=== PATIENT | female | born 1945 | race Caucasian/White ===

== ENCOUNTER 2018-05-28 14:22 | Inpatient (IN) | payer OTHER, MEDICARE ==
[2018-05-28] MEDS ORDERED: SODIUM CHLORIDE IV ONE (15:56)
[2018-05-28] MEDS ORDERED: VANCOMYCIN 1,000 MG in DEXTROSE 5%-WATER - 250 ML IVPB ONE (15:56)
[2018-05-28] MEDS ORDERED: ACETAMINOPHEN 1000 MG/100 ML VIAL (NON FORMULARY) IVPB ONE (15:56)
--- NOTE | 2018-05-28 16:10 | PDOC ---
History of Present Illness - General Chief Complaint: SIRS, Suspected/Possible Stated Complaint: FEVER Time Seen by Provider: 05/28/18 15:58 History Source: Patient - History of Present Illness Initial Comments: 05/28/18 16:44 The patient is a 72 year old female with a PMH of HTN, Depression, Sepsis (w/ recent admission @ [facility]), Rheumatoid Arthritis who presents with family for a chief complaint of pain. Daughter @ bedside assists with history. 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 Today, patient did not wake up at her normal hour and when a friend came to check on her aruond 10 a.m. she noted that patient had urinated in the bed. Patient is now c/o pain all over, worse in her arms. 10 ROS is negative including no chest pain/shortness of breath/nausea/vomiting/ diarrhea/constipation/dsyuria/hematuria. NKDA As per EMR, patient last evaluated in our ED in [address] showed non-obstructing nephrolithiasis. Past History - Past Medical History Allergies/Adverse Reactions: Allergies Allergy/AdvReac Type Severity Reaction Status Date / Time No Known Allergies Allergy Verified 01/11/12 15:48 Home Medications: Ambulatory Orders Amphet Asp/Amphet/D-Amphet [Adderall 20 mg Tablet] 20 mg PO DAILY 01/11/12 Amphet Asp/Amphet/D-Amphet [Adderall 20 mg Tablet] 60 mg PO HS 01/11/12 Biotin 1 tab PO DAILY 01/11/12 Cholecalciferol (Vitamin D3) [Vitamin D3] 400 unit PO DAILY 01/11/12 Clonazepam 1 mg PO BID 01/11/12 Phenelzine Sulfate [Nardil] 15 mg PO BID 01/11/12 Amlodipine Besylate [Norvasc -] 2.5 mg PO DAILY 05/28/18 Aripiprazole 10 mg PO DAILY 05/28/18 Atenolol [Tenormin -] 50 mg PO DAILY 05/28/18 Ferrous Sulfate [Iron] 0 mg PO DAILY 05/28/18 Leflunomide [Arava] 20 mg PO DAILY 05/28/18 predniSONE [Deltasone -] 5 mg PO DAILY 05/28/18 Anemia: Yes (IRON DEFICIENCY) Asthma: Yes COPD: No HTN: Yes Psychiatric Problems: Yes (Depression) - Immunization History Td Vaccination: No - Suicide/Smoking/Psychosocial Hx Smoking Status: Yes Smoking History: Unknown if ever smoked Have you smoked in the past 12 months: No Number of Cigarettes Smoked Daily: 0 Hx Alcohol Use: No Drug/Substance Use Hx: No Review of Systems - Review of Systems Constitutional: No: Chills, Fever HEENTM: No: Recent change in vision Respiratory: No: Cough, Shortness of Breath Cardiac (ROS): No: Chest Pain, Lightheadedness, Palpitations, Syncope ABD/GI: No: Constipated, Diarrhea, Nausea, Vomiting : No: Burning, Dysuria *Physical Exam - Vital Signs Last Vital Signs Temp Pulse Resp BP Pulse Ox 102 F H 109 H 20 108/65 95 05/28/18 15:00 05/28/18 15:00 05/28/18 15:00 05/28/18 15:00 05/28/18 15:00 - Physical Exam Comments: 05/28/18 22:39 General: Comfortable, no acute distress HEENT: PERRL, EOMI, MMM, voice normal, normal neck ROM Cards: RRR, systolic murmur best asculatated in the R 2nd intercostal space Pulm: Comfortable on room air, clear to auscultation bilaterally Abd: Soft, nontender, nondistended : No CVA tenderness Rectal: Normal tone, no blood noted, no perianal lesions. Watery brown stool on digital exam. Ext: Atraumatic. No LE edema. ROM intact. Strength 5/5 and equal bilaterally Vasc: Extremities WWP. Skin: Normal color, no rashes or lesions, mild hyperethesia in B/L UE Neuro: A&Ox3, CN grossly intact, normal speech, motor/sensory grossly intact and symmetric Psych: Mood appropriate to situation Moderate Sedation - Procedure Monitoring Vital Signs: Procedure Monitoring Vital Signs Temperature 102 F H 05/28/18 15:00 Pulse Rate 109 H 05/28/18 15:00 Respiratory Rate 20 05/28/18 15:00 Blood Pressure 108/65 05/28/18 15:00 O2 Sat by Pulse Oximetry (%) 95 05/28/18 15:00 Heart Score/ECG Review - ECG Impressions Comment:: 05/28/18 21:06 HR 99, NSR, normal intervals, no deviations, no RUSS/STD/TWI - non ischemic EKG ED Treatment Course - LABORATORY CBC & Chemistry Diagram: 05/28/18 17:20 05/28/18 17:20 Medical Decision Making - Medical Decision Making 72 year old female with chief c/o pain. H/o recent hospitalization @ [facility] for sepsis possible etiology PNA vs. UTI. Febrile (102) and Tachycardic (HR 109) @ presentation. ED Adult Sepsis protocol initiated + Empiric Abx coverage 05/28/18 17:15 Repeat VS: HR 101, BP 111/62, SpO2 99% on 2L NC My read of CXR shows no infiltrate/consolidation Leukocytosis (22.4) Microcytic Anemia (Hb 7.9) UA clean Influenza negative Troponin 0.10 - w/o EKG changes or complaints of chest pain, possibly 2/2 to ischemic demand Patient requires inpatient admission for IV antibiotics as well as further evaluation of sepsis etiology. 05/28/18 20:35 Case d/w Dr. Pola Capellan Patient admitted to inpatient medicine service for further evaluation Patient reassessed @ bedside VSS Requesting PO intake Counseled on plan of care, amenable to admission. Clinical Impression: Sepsis *DC/Admit/Observation/Transfer Diagnosis at time of Disposition: Fever - Referrals - Patient Instructions - Post Discharge Activity
[2018-05-28] MEDS ORDERED: ACETAMINOPHEN INJECTION 100 ML IVPB ONE (16:40)
[2018-05-28] MEDS ORDERED: VANCOMYCIN 1 GRAM (PRE-DOCKED) 1,000 MG/250 ML BAG IVPB ONE (16:40)
--- NOTE | 2018-05-28 17:15 | PDOC ---
Attending Attestation - HPI HPI: 05/28/18 18:15 The patient is a 72 year old female with past medical history of HTN, depression , Sepsis (with recent admission at [facility]) and RA (on Prednisone) presents to the emergency department with generalized pain. The patient reports she has pain to her arms and pain all over and its been waxing and waning for a week. Per daughter, she was found by a friend around 10:00 am, who noted that she urinated on the bed. Denies rhinorrhea, cough, abdominal pain. - Physicial Exam PE: 05/28/18 18:15 Vitals: Triage Vital signs reviewed General Appearance: no acute distress, well nourished well developed, Neck: Supple;No Nuchal rigidity Chest Wall: Nontender Cardiac: +Systolic ejection murmur. Regular rate and rhythm. no rubs, no gallops , Lungs: Clear to auscultation bilateral, good air movement bilaterally, Abdomen: Soft, nondistended, normal bowel sounds, nontender to palpation Extremities: Full range of motion to all extremities, no cyanosis, clubbing, or edema Skin: Warm and dry, no rashes or lesions, no petechiae - Medical Decision Making 05/28/18 18:16 Documentation prepared by Lexie Middleton, acting as medical biller coder for Miky Schwartz MD. 05/28/18 18:16 EKG: EKG read by Dr. Schwartz 17:21. Vent. Rate 99 bpm OH interval 120 ms QRS duration 72 ms QT/QTc 388/497 ms Normal sinus rhythm <Lexie Middleton - Last Filed: 05/28/18 18:15> - Resident Resident Name: Adrianne Gallegos - ED Attending Attestation I have performed the following: I have examined & evaluated the patient, The case was reviewed & discussed with the resident, I agree w/resident's findings & plan, Exceptions are as noted - Medical Decision Making 72 years old with criteria for sepsis Fever chills body aches No obvious etiology at this time chest x-ray unremarkable marked leukocytosis noted on CBC Given fever and leukocytosis and recent hospitalization patient covered with broad-spectrum antibiotics for possible sepsis/hospital-acquired pneumonia We'll admit to medicine for further management. <Miky Schwartz - Last Filed: 05/30/18 15:15>
[2018-05-28 17:30] LABS: VENOUS PC02 35.3 mmHg (41-51); VENOUS PH 7.43 (7.31-7.41); VENOUS PO2 63.7 mmHg (30-40)
[2018-05-28 17:33] LABS: BASO % 0.4 % (0-2.0); EOS % 0.2 % (0-4.5); HEMATOCRIT 24.6 % (32.4-45.2); HEMOGLOBIN 7.9 GM/dL (10.7-15.3); LYMPH % 3.4 % (8-40); MCH 24.8 pg (25.7-33.7); MCHC 32.1 g/dl (32.0-36.0); MEAN CELL VOLUME 77.2 fl (80-96); MEAN PLT VOLUME 7.7 fl (7.5-11.1); MONO % 5.8 % (3.8-10.2); NEUT % 90.2 % (42.8-82.8); PLATELET COUNT 231 K/MM3 (134-434); RBC 3.19 M/mm3 (3.60-5.2); RDW 19.8 % (11.6-15.6); WHITE BLOOD COUNT 22.4 K/mm3 (4.0-10.0)
[2018-05-28 17:52] LABS: INR 1.28 (0.83-1.09); PROTHROMBIN TIME (PATIENT) 15.1 SEC (9.7-13.0)
[2018-05-28 17:55] LABS: ACTIVATED PTT 25.3 SECONDS (25.2-36.5)
[2018-05-28 17:57] LABS: ALBUMIN 2.2 g/dl (3.4-5.0); ALK PHOS 88 U/L (45-117); ANION GAP 7 MMOL/L (8-16); BILIRUBIN,TOTAL 0.6 mg/dL (0.2-1); BLOOD UREA NITROGEN 22 mg/dL (7-18); CALCIUM 7.5 mg/dL (8.5-10.1); CHLORIDE 106 mmol/L (98-107); CO2 24 mmol/L (21-32); CREATININE 0.8 mg/dL (0.55-1.3); GLUCOSE,RANDOM 85 mg/dL (74-106); POTASSIUM 4.1 mmol/L (3.5-5.1); SGOT/AST 16 U/L (15-37); SGPT/ALT 20 U/L (13-61); SODIUM 136 mmol/L (136-145); TOT PROT 4.5 g/dl (6.4-8.2)
[2018-05-28 18:33] LABS: URINE APPEARANCE CLEAR; URINE BILIRUBIN NEGATIVE (<2.0 mg/dL); URINE COLOR YELLOW; URINE GLUCOSE (UA) NEGATIVE (NEGATIVE); URINE KETONE NEGATIVE (NEGATIVE); URINE LEUK ESTERASE NEGATIVE (NEGATIVE); URINE NITRITE NEGATIVE (NEGATIVE); URINE PROTEIN 1+ (NEGATIVE); URINE UROBILINOGEN NEGATIVE mg/dL (0.2-1.0)
[2018-05-28 18:42] LABS: URINE HYALINE CAST 1 /lpf; URINE MUCUS RARE
[2018-05-28 19:26] LABS: ANISOCYTOSIS 1+; OVALOCYTE 1+; PLATELET ESTIMATE ADEQUATE
--- NOTE | 2018-05-28 20:40 | HP ---
CHIEF COMPLAINT: generalized weakness PCP: dr. julian hayden HISTORY OF PRESENT ILLNESS: The patient is a 72 year old female with a PMH of HTN, Depression, OA, RA, Lupus , CHF, asthma , Sepsis (w/recent admission @ [facility] [place]), RA who presents with family for a chief complaint of pain and genralised weakness . Daughter @ bedside assists with history. 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 Today, patient did not wake up at her normal hour and when a friend came to check on her aruond 10 a.m. she noted that patient had urinated in the bed. Patient is now c/o pain all over, worse in her arms. daughter denies any chest pain or sob , palpitation , headache or blurry vision , but reports low grade fever , some confusion in AM and slow in her response, lethargic and general fatigue has a history of RA, OA that worsen todaya nd over last week. she was in rehab for 6 months was dc from rehab last july had left knee surgery last September per daughter daughter Pati phone number [phone] ER course was notable for: (1) UA , cbc, cmp (2)Ceftriaxone (3)IV fluids Recent Travel:denies PAST MEDICAL HISTORY: Asthma, HTN , CHF , RA, OA , lupus PAST SURGICAL HISTORY: Social History: Smoking:previous smoker quit 30 years ago, Alcohol:socially Drugs: denies Family History: father with pancreatic cancer Allergies No Known Allergies Allergy (Verified 01/11/12 15:48) HOME MEDICATIONS: Home Medications Medication Instructions Recorded Amphet Asp/Amphet/D-Amphet 20 mg PO DAILY 01/11/12 [Adderall 20 mg Tablet] Amphet Asp/Amphet/D-Amphet 60 mg PO HS 01/11/12 [Adderall 20 mg Tablet] Biotin 1 tab PO DAILY 01/11/12 Cholecalciferol (Vitamin D3) 400 unit PO DAILY 01/11/12 [Vitamin D3] Clonazepam 1 mg PO BID 01/11/12 Phenelzine Sulfate [Nardil] 15 mg PO BID 01/11/12 Amlodipine Besylate [Norvasc -] 2.5 mg PO DAILY 05/28/18 Aripiprazole 10 mg PO DAILY 05/28/18 Atenolol [Tenormin -] 50 mg PO DAILY 05/28/18 Ferrous Sulfate [Iron] 0 mg PO DAILY 05/28/18 Leflunomide [Arava] 20 mg PO DAILY 05/28/18 predniSONE [Deltasone -] 5 mg PO DAILY 05/28/18 REVIEW OF SYSTEMS CONSTITUTIONAL: Absent: fever, chills, diaphoresis, generalized weakness, malaise, loss of appetite, weight change HEENT: Absent: rhinorrhea, nasal congestion, throat pain, throat swelling, difficulty swallowing, mouth swelling, ear pain, eye pain, visual changes CARDIOVASCULAR: Absent: chest pain, syncope, palpitations, irregular heart rate, lightheadedness , peripheral edema RESPIRATORY: Absent: cough, shortness of breath, dyspnea with exertion, orthopnea, wheezing, stridor, hemoptysis GASTROINTESTINAL: Absent: abdominal pain, abdominal distension, nausea, vomiting, diarrhea, constipation, melena, hematochezia GENITOURINARY: Absent: dysuria, frequency, urgency, hesitancy, hematuria, flank pain, genital pain MUSCULOSKELETAL: Absent: myalgia, arthralgia, joint swelling, back pain, neck pain SKIN: Absent: rash, itching, pallor HEMATOLOGIC/IMMUNOLOGIC: Absent: easy bleeding, easy bruising, lymphadenopathy, frequent infections ENDOCRINE: Absent: unexplained weight gain, unexplained weight loss, heat intolerance, cold intolerance NEUROLOGIC: Absent: headache, focal weakness or paresthesias, dizziness, unsteady gait, seizure, mental status changes, bladder or bowel incontinence PSYCHIATRIC: Absent: anxiety, depression, suicidal or homicidal ideation, hallucinations. PHYSICAL EXAMINATION Vital Signs - 24 hr 05/28/18 05/28/18 05/28/18 15:00 16:30 17:31 Temperature 102 F H Pulse Rate 109 H Pulse Rate [ 100 H 100 H Apical] Respiratory 20 24 H 24 H Rate Blood Pressure 108/65 Blood Pressure 115/64 103/58 L [Right Arm] O2 Sat by Pulse 98 98 93 L Oximetry (%) 05/28/18 05/28/18 05/28/18 18:30 19:16 19:25 Temperature 98.5 F Pulse Rate Pulse Rate [ 95 H 92 H Apical] Respiratory 24 H 24 H Rate Blood Pressure Blood Pressure 109/60 111/60 [Right Arm] O2 Sat by Pulse 93 L 98 98 Oximetry (%) 05/28/18 19:30 Temperature Pulse Rate Pulse Rate [ 92 H Apical] Respiratory 22 H Rate Blood Pressure Blood Pressure 107/61 [Right Arm] O2 Sat by Pulse 98 Oximetry (%) GENERAL: Awake, alert,oriented to person , lethargic sleepy ,butterfly rash HEAD: Normal with no signs of trauma. EYES: Pupils equal, round and reactive to light, extraocular movements intact, EARS, NOSE, THROAT: Ears normal, nares patent, oropharynx clear without exudates. Moist mucous membranes. NECK: Normal range of motion, supple LUNGS: CTA B.l HEART: Regular rate and rhythm, normal S1 and S2, soft systolic murmur 2/6 RUSB Abdomen : Soft, ND. NT , normal BS , no suprapubic tenderness UPPER EXTREMITIES: 2+ pulses, warm, well-perfused. No cyanosis. limited rom due to pain , B/L shoulder swelling , right hand finger joint swelling LOWER EXTREMITIES: 2+ pulses, warm, well-perfused. No calf tenderness. strength 5/5 lower ext extension and flexion NEUROLOGICAL: Cranial nerves II-XII intact. Normal speech. PSYCHIATRIC: Cooperative. lethargic SKIN: Warm, dry, normal turgor, butterfly rash Laboratory Results - last 24 hr 05/28/18 05/28/18 05/28/18 17:20 17:20 17:20 WBC 22.4 H RBC 3.19 L Hgb 7.9 L Hct 24.6 L MCV 77.2 L MCH 24.8 L MCHC 32.1 RDW 19.8 H Plt Count 231 MPV 7.7 Absolute Neuts (auto) 20.2 H Total Counted 100 Neutrophils % 90.2 H Neutrophils % (Manual) 83.0 H Band Neutrophils % 4.0 Lymphocytes % 3.4 L Lymphocytes % (Manual) 5.0 L Monocytes % 5.8 Monocytes % (Manual) 7 Eosinophils % 0.2 Eosinophils % (Manual) 1.0 Basophils % 0.4 Nucleated RBC % 0 Differential Comment Man diff performed Platelet Estimate Adequate Platelet Comment Poikilocytosis 1+ Anisocytosis 1+ Ovalocytes 1+ PT with INR 15.10 H INR 1.28 H PTT (Actin FS) 25.3 VBG pH 7.43 H POC VBG pCO2 35.3 L POC VBG pO2 63.7 H VBG HCO3 22.8 L VBG O2 Sat (Thomas) 90.6 H VBG Base Excess -0.8 Sodium Potassium Chloride Carbon Dioxide Anion Gap BUN Creatinine Creat Clearance w eGFR Random Glucose Lactic Acid Calcium Total Bilirubin AST ALT Alkaline Phosphatase Troponin I Total Protein Albumin Urine Color Urine Appearance Urine pH Ur Specific [place] Urine Protein Urine Glucose (UA) Urine Ketones Urine Blood Urine Nitrite Urine Bilirubin Urine Urobilinogen Ur Leukocyte Esterase Urine WBC (Auto) Urine RBC (Auto) Hyaline Casts Urine Mucus Influenza A (Rapid) Influenza B (Rapid) 05/28/18 05/28/18 05/28/18 17:20 17:20 17:20 WBC RBC Hgb Hct MCV MCH MCHC RDW Plt Count MPV Absolute Neuts (auto) Total Counted Neutrophils % Neutrophils % (Manual) Band Neutrophils % Lymphocytes % Lymphocytes % (Manual) Monocytes % Monocytes % (Manual) Eosinophils % Eosinophils % (Manual) Basophils % Nucleated RBC % Differential Comment Platelet Estimate Platelet Comment Poikilocytosis Anisocytosis Ovalocytes PT with INR INR PTT (Actin FS) VBG pH POC VBG pCO2 POC VBG pO2 VBG HCO3 VBG O2 Sat (Thomas) VBG Base Excess Sodium 136 Potassium 4.1 Chloride 106 Carbon Dioxide 24 Anion Gap 7 L BUN 22 H Creatinine 0.8 Creat Clearance w eGFR > 60 Random Glucose 85 Lactic Acid 1.1 Calcium 7.5 L Total Bilirubin 0.6 AST 16 ALT 20 Alkaline Phosphatase 88 Troponin I 0.10 H Total Protein 4.5 L Albumin 2.2 L Urine Color Urine Appearance Urine pH Ur Specific [place] Urine Protein Urine Glucose (UA) Urine Ketones Urine Blood Urine Nitrite Urine Bilirubin Urine Urobilinogen Ur Leukocyte Esterase Urine WBC (Auto) Urine RBC (Auto) Hyaline Casts Urine Mucus Influenza A (Rapid) Negative Influenza B (Rapid) Negative 05/28/18 05/28/18 05/28/18 17:23 18:00 18:53 WBC RBC Hgb Hct MCV MCH MCHC RDW Plt Count MPV Absolute Neuts (auto) Total Counted Neutrophils % Neutrophils % (Manual) Band Neutrophils % Lymphocytes % Lymphocytes % (Manual) Monocytes % Monocytes % (Manual) Eosinophils % Eosinophils % (Manual) Basophils % Nucleated RBC % Differential Comment Platelet Estimate Platelet Comment Poikilocytosis Anisocytosis Ovalocytes PT with INR INR PTT (Actin FS) VBG pH POC VBG pCO2 POC VBG pO2 VBG HCO3 VBG O2 Sat (Thomas) VBG Base Excess Sodium Potassium Chloride Carbon Dioxide Anion Gap BUN Creatinine Creat Clearance w eGFR Random Glucose Lactic Acid 1.2 Calcium Total Bilirubin AST ALT Alkaline Phosphatase Troponin I Cancelled Total Protein Albumin Urine Color Yellow Urine Appearance Clear Urine pH 6.0 Ur Specific [place] 1.018 Urine Protein 1+ H Urine Glucose (UA) Negative Urine Ketones Negative Urine Blood Negative Urine Nitrite Negative Urine Bilirubin Negative Urine Urobilinogen Negative Ur Leukocyte Esterase Negative Urine WBC (Auto) 1 Urine RBC (Auto) None Hyaline Casts 1 Urine Mucus Rare Influenza A (Rapid) Influenza B (Rapid) CBC, BMP 05/28/18 17:20 05/28/18 17:20 ASSESSMENT/PLAN: The patient is a 72 year old female with a PMH of HTN, Depression, OA, RA, Lupus , CHF, asthma , Sepsis (w/recent admission @ [facility] [place]), RA who presents with family for a chief complaint of pain and generalized weakness .admitted to med- surg due to RA flare up sepsis 2/ HPNA * ct chest with upper and lower lobe infiltrate * wbc 22.4 , rectal temp 102 in ED * zosyn daily , doxycycline 100 BID * vanco given IN ED * gentle hydration IV fluids NS @ 42 cc/hr * daugherty cx * urine legionella AG * RA flare up * complain of B/l shoulder pain * on prednisone at home will cont with 40 daily and Vit D * Rheumatology consult for possible joint aspiration * CT chest shows B/L shoulder(glomerulohumeral ) effusion CHF * stable in NAD * resume home meds Elevated trop likley demand ischedmia , * Tren trop * EKG * ASA Asthma * stable Anemia * likely due to chronic disease * H/H 7.9/24.6 * irone studies chronic L4 compression fracture * asymptomatic * f.u out pt * PT thyroid nodule * [address] scan * repeat images as out pt L-ovary cyst * 3.7 cm , repeat images as out pt in 6 months Bilateral non obstructing renal stones with nonspecific aissatou-renal fluid. FEN * F: NS @ 42 cc/hr * E: monitor lytes * N: low sodium diet Proph * DVTS: SCDS * GI PPI Dispo * med surg code: full code daughter has health care proxy Pati Ventura [phone] Visit type - Emergency Visit Emergency Visit: Yes ED Registration Date: 05/28/18 Care time: The patient presented to the Emergency Department on the above date and was hospitalized for further evaluation of their emergent condition. - New Patient This patient is new to me today: Yes Date on this admission: 05/29/18 - Critical Care Critical Care patient: No
--- NOTE | 2018-05-28 20:56 | PN ---
Teaching Attending Note Name of Resident: Pola Echeverria ATTENDING PHYSICIAN STATEMENT I saw and evaluated the patient. I reviewed the resident's note and discussed the case with the resident. I agree with the resident's findings and plan as documented. SUBJECTIVE: Seen and examined; please refer to resident note for further historical information. Briefly, this is a 72 y/o female presenting to the hosptial today due to lethargy, confusion; she was found in her own urine on her bed. She was complaining of generalized pain throughout her body stereotyped of her RA with shoulder and hand pain and swelling. History of RA/Lupus on chronic steroids; not on DMARD. 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 2 weeks ago at [facility] 2 /2 UTI with sepsis. She feels weak and tired; not altered or confused when I saw her. She is requiring some O2 and is found on prelim CT to have a DELFINO pneumonia and b/l pleural effusions with ?LLL pna and likely elevated PAP. She recently had a flare of RA and was on a prednisone taper starting at 40 QD. Slightly tachycardic with normal BP and 98% on 2L O2 on admission. She denies any previously existing pulmonary or cardiac pathology. She was having no cardiac sx and her troponin trended down from .1 to .09. She has a largely elevated ESR and CRP. She will be placed on telemetry and monitored on the medicine service. 10 sys ROS done and negative aside from HPI PMH, PSH, Family Hx, Social Hx reviewed Medication list reviewed OBJECTIVE: VS, labs, imaging reviewed NAD, AAO, resting in bed. Somewhat uncomfortably due to joint pain NC AT EOMI PERRLA RRR s1/2 no mgr Lungs mostly clear but some L-sided rales, w/ sym exp No rashes or abbrasions but thin-appearing skin Hands with lissy's nodules, joint swelling warm to touch in the b/l hands. CN2-12 wnl, no fnd Normal mood, appropriate behavior CT shows DELFINO pneumonia and bilateral pleural effusions (may be covering up a LLL process?) with cardiomegaly and dilated pulmonary A. maybe representing elevated PAP. 2cm thyroid nodule, b/l glenohumeral joint effusions with multiple chronic thoracic compressions as well as chronic L4 compression fracture. She is seen to have b/l glenohumeral joint effusions. CT abdomen/pelvis shows 3.7 cm cyst on the L-ovary with recommendation for 6 month imaging followup. Bilateral nonobstructing renal stones with nonspecific perirenal fluid. ASSESSMENT AND PLAN: Patient presents with lethargy/confusion and was noted to require some O2; she is noted to have a DELFINO pneumonia with possible flare of her autoimmune disease. 1) DELFINO Pneumonia -Given recent admit to [facility] for HAP (but with acknowledement that she has been out in the community) she would be at risk for HAP with atypicals. PNA endorsed by the imaging, as well as the leukocytosis and SOB. Will cover empirically and culture blood and sputum; v/z/atypical coverage. She will be monitored on tele with incentive spirometry. She doesn't appear to be in decompensated CHF but will go ahead and check a BNP. 2) Autoimmune disease flare -Placing back on 40 Prednisone daily and monitor; consult Dr. Hatfield. Trying to obtain OP records. ESR and CRP grossly elevated. 3) Troponemia -No CV sx; RA could effect the heart, etc. May also be demand. Will go ahead and trend troponin down, check echocardiogram. She hasn't seen a CV here so we will consult electronic systems security assessment cardiology for expert opinion. 4) HTN -Reconcile and continue appropriate home meds 5) Joint Effusions -Likely due to RA; doubt infectious etiology given polyarticular involvement. 6) Pleural Effusions -Checking BNP and echo but suspect that this could be related to her underlying rheum disease 7) Hypoalbuminemia -Checking prealbumin and considering nutritional consult 8) Chronic Compression fractures -High risk with steroid use; needs to FU with PCP ensure she is up to date on DEXA, etc. Can offer OP referral to NSGY. 9) Nonobstructing renal calculi -Noted; monitor 10) Thyroid nodule -2cm nodule found incidentally on CT; check US and TFTs 11) R-adenexal cyst -Found incidentally, 3.7cm on prelim read. Followup 6 months with repeat imaging.
[2018-05-28] MEDS ORDERED: SODIUM CHLORIDE 250 ML IV STA (21:17)
[2018-05-28] MEDS ORDERED: SODIUM CHLORIDE 1,000 ML IV SCH (21:30)
[2018-05-28] MEDS ORDERED: DEXTROSE 50%-WATER 25 GM/50 ML DISP.SYRIN IVPUSH ONE (23:52)
[2018-05-28] MEDS ORDERED: DEXTROSE 50%-WATER 25 GM/50 ML DISP.SYRIN IVPUSH PRN (23:52)
[2018-05-29 04:03] VITALS: BMI 25.4
[2018-05-29] MEDS ORDERED: PIPERACILLIN/TAZOBACTAM 3.375 GM VIAL IVPB ONE ×3 (06:56→21:49)
[2018-05-29] MEDS ORDERED: DEXTROSE 5%-WATER - 50 ML IVPB ONE ×3 (06:56→21:50)
[2018-05-29] MEDS: PIPERACILLIN/TAZOB 3.375 GM 3.375 GM in DEXTROSE 5%-WATER - 50 ML IVPB SCH ×3 (07:03→22:01)
[2018-05-29 07:17] LABS: BASO % 0.4 % (0-2.0); EOS % 0.9 % (0-4.5); HEMATOCRIT 25.5 % (32.4-45.2); HEMOGLOBIN 8.1 GM/dL (10.7-15.3); LYMPH % 3.2 % (8-40); MCH 24.8 pg (25.7-33.7); MCHC 31.7 g/dl (32.0-36.0); MEAN CELL VOLUME 78.1 fl (80-96); MEAN PLT VOLUME 8.2 fl (7.5-11.1); MONO % 6.1 % (3.8-10.2); NEUT % 89.4 % (42.8-82.8); PLATELET COUNT 235 K/MM3 (134-434); RBC 3.26 M/mm3 (3.60-5.2); RDW 19.6 % (11.6-15.6); WHITE BLOOD COUNT 17.2 K/mm3 (4.0-10.0)
[2018-05-29] MEDS ORDERED: ASPIRIN 325 MG TABLET PO ONE (08:15)
[2018-05-29 08:58] LABS: ALBUMIN 2.1 g/dl (3.4-5.0); CO2 21 mmol/L (21-32); CREATININE 0.7 mg/dL (0.55-1.3)
[2018-05-29 09:10] LABS: ALK PHOS 100 U/L (45-117); ANION GAP 8 MMOL/L (8-16); BILIRUBIN,TOTAL 0.5 mg/dL (0.2-1); BLOOD UREA NITROGEN 17 mg/dL (7-18); CALCIUM 7.9 mg/dL (8.5-10.1); CHLORIDE 109 mmol/L (98-107); GLUCOSE,RANDOM 68 mg/dL (74-106); N-TERMINAL BNP 3785.8 pg/ml (5-125); SGOT/AST 18 U/L (15-37); SGPT/ALT 20 U/L (13-61); SODIUM 138 mmol/L (136-145); TOT PROT 4.6 g/dl (6.4-8.2)
[2018-05-29] MEDS ORDERED: SODIUM CHLORIDE 1,000 ML IV SCH (09:44)
[2018-05-29] MEDS ORDERED: DOXYCYCLINE INJECTION 100 MG in DEXTROSE 5%-WATER 100 ML IVPB SCH (10:00)
[2018-05-29] MEDS ORDERED: predniSONE 20 MG TABLET (UD) PO SCH ×3 (10:00→17:04)
[2018-05-29] MEDS ORDERED: predniSONE 5 MG TABLET (UD) PO SCH (10:00)
[2018-05-29] MEDS ORDERED: ARIPiprazole 10 MG TABLET PO SCH (10:00)
[2018-05-29] MEDS ORDERED: ATENOLOL 50 MG TABLET (FP) PO SCH (10:00)
[2018-05-29] MEDS ORDERED: CEFTRIAXONE 1 GM in DEXTROSE 5%-WATER - 50 ML IVPB SCH (10:00)
[2018-05-29 10:18] LABS: ERYTHROCYTE SEDIMENTATION RATE 54 mm/hr (0-30)
--- NOTE | 2018-05-29 11:08 | EKG ---
Test Reason : Blood Pressure : / mmHG Vent. Rate : 091 BPM Atrial Rate : 091 BPM P-R Int : 116 ms QRS Dur : 088 ms QT Int : 404 ms P-R-T Axes : 032 017 074 degrees QTc Int : 496 ms NORMAL SINUS RHYTHM PROLONGED QT ABNORMAL ECG WHEN COMPARED WITH ECG OF 28-MAY-2018 17:21, NO SIGNIFICANT CHANGE WAS FOUND Confirmed by ABEL EDWARD MD ([id number]) on 05/29/2018 11:07:42 AM Referred By: Confirmed By:ABEL EDWARD MD
--- NOTE | 2018-05-29 11:09 | EKG ---
Test Reason : Blood Pressure : / mmHG Vent. Rate : 099 BPM Atrial Rate : 099 BPM P-R Int : 120 ms QRS Dur : 072 ms QT Int : 388 ms P-R-T Axes : 000 -08 056 degrees QTc Int : 497 ms NORMAL SINUS RHYTHM INFERIOR INFARCT , AGE UNDETERMINED ABNORMAL ECG NO PREVIOUS ECGS AVAILABLE Confirmed by ABEL EDWARD MD ([id number]) on 05/29/2018 11:09:20 AM Referred By: Confirmed By:ABEL EDWARD MD
[2018-05-29] MEDS: ARIPiprazole 10 MG TABLET PO SCH (12:09)
[2018-05-29] MEDS: ATENOLOL 50 MG TABLET (FP) PO SCH (12:09)
--- NOTE | 2018-05-29 12:31 | CON.CARD ---
Consult Consult Specialty:: Cardiology Referred by:: Dr. Tripp Reason for Consultation:: Elevated troponin - History of Present Illness Chief Complaint: Body pain History of Present Illness: 72 year old woman with a PMHx of HTN, CHF, depression, OA, RA, lupus, asthma, sepsis (recent admission at [facility]) presented to ED 05/28/2018 with body pain and generalized weakness. She was found to have mildly elevated troponin (0.10 -> 0.09) and markedly elevated BNP. She also has fever, severely elevated WBC and severe anemia. CT chest showed a small patch LLL infiltrate, small bilateral pleural effusion, dilatation pulmonary artery and hiatal hernia. ECG revealed sinus rhythm with prolong QT, inferior Q waves and normal ST-T. She was given ceftriaxone and IV fluid in ED. Echocardiogram 05/29/2018: Technically difficult study. Normal LV size and systolic function. Normal RV. Severe LA dilatation. Moderate RA dilatation. Moderate to severe MAC with functional MS and moderate MR. Moderate to severe TR. Normal AV. Moderate pulmonary HTN. PASP = 40-50 mmHg. - History Source History Provided By: Patient, Medical Record Limitations to Obtaining History: No Limitations - Alcohol/Substance Use Hx Alcohol Use: No - Smoking History Smoking history: Unknown if ever smoked Have you smoked in the past 12 months: No Aproximately how many cigarettes per day: 0 Home Medications - Allergies Allergies/Adverse Reactions: Allergies Allergy/AdvReac Type Severity Reaction Status Date / Time No Known Allergies Allergy Verified 01/11/12 15:48 - Home Medications Home Medications: Ambulatory Orders Amphet Asp/Amphet/D-Amphet [Adderall 20 mg Tablet] 20 mg PO DAILY 01/11/12 Amphet Asp/Amphet/D-Amphet [Adderall 20 mg Tablet] 60 mg PO HS 01/11/12 Biotin 1 tab PO DAILY 01/11/12 Cholecalciferol (Vitamin D3) [Vitamin D3] 400 unit PO DAILY 01/11/12 Clonazepam 2 mg PO DAILY 01/11/12 Phenelzine Sulfate [Nardil] 15 mg PO BID 01/11/12 Amlodipine Besylate [Norvasc -] 5 mg PO DAILY 05/28/18 Aripiprazole 10 mg PO DAILY 05/28/18 Atenolol [Tenormin -] 50 mg PO DAILY 05/28/18 Ferrous Sulfate [Iron] 0 mg PO DAILY 05/28/18 Leflunomide [Arava] 20 mg PO DAILY 05/28/18 predniSONE [Deltasone -] 5 mg PO DAILY 05/28/18 Dextroamphetamine/Amphetamine [Adderall Xr 20 mg Capsule] 20 mg PO DAILY Dextroamphetamine/Amphetamine [Adderall Xr 30 mg Capsule] 30 mg PO BID 05/29/18 Furosemide 40 mg PO DAILY 05/29/18 Hydroxychloroquine Sulfate 200 mg PO BID 05/29/18 Review of Systems - Review of Systems Constitutional: reports: Malaise, Weakness Eyes: reports: No Symptoms HENT: reports: No Symptoms Neck: reports: No Symptoms Vital Signs: Vital Signs Temperature 99 F 05/29/18 09:00 Pulse Rate 100 H 05/29/18 09:00 Respiratory Rate 22 H 05/29/18 09:00 Blood Pressure 152/72 05/29/18 09:00 O2 Sat by Pulse Oximetry (%) 98 05/29/18 09:00 General: Well developed. Chronic ill and pale. No acute distress. Head: Normocephalic. Atraumatic, Eyes: PERRLA, EOMI. Sclerae anicteric. Conjunctivae clear. Neck: Supple. No JVD. No bruits. Heart: Normal S1, S2: Regular rhythm and rate. II/ HSM. No gallop or rub. Lungs: Symmetrical air entry. Clear to auscultation. No crackle. No wheezing or rhonchi. Abdomen: Soft. Bowel sound positive. Non tender. No masses. Extremities: No edema. No clubbing or cyanosis. - Other Data Labs, Other Data: CBC, BMP 05/29/18 06:00 05/29/18 06:00 INR, PTT INR 1.28 (0.83-1.09) H 05/28/18 17:20 Troponin, BNP 05/28/18 05/28/18 05/28/18 17:20 17:23 22:58 Troponin I 0.10 H Cancelled 0.09 H B-Natriuretic Peptide 05/29/18 06:00 Troponin I 0.05 B-Natriuretic Peptide 3785.8 H Troponin, BNP 05/28/18 05/28/18 05/28/18 17:20 17:23 22:58 Troponin I 0.10 H Cancelled 0.09 H B-Natriuretic Peptide 05/29/18 06:00 Troponin I 0.05 B-Natriuretic Peptide 3785.8 H Assessment/Plan 72 year old woman with a PMHx of HTN, CHF, depression, OA, RA, lupus, asthma, sepsis (recent admission at [facility]) presented to ED 05/28/2018 with body pain and generalized weakness. She was found to have mildly elevated troponin (0.10 -> 0.09) and markedly elevated BNP. She also has fever, severely elevated WBC and severe anemia. CT chest showed a small patch LLL infiltrate, small bilateral pleural effusion, dilatation pulmonary artery and hiatal hernia. ECG revealed sinus rhythm with prolong QT, inferior Q waves and normal ST-T. She was given ceftriaxone and IV fluid in ED. Echocardiogram 05/29/2018: Technically difficult study. Normal LV size and systolic function. Normal RV. Severe LA dilatation. Moderate RA dilatation. Moderate to severe MAC with functional MS and moderate MR. Moderate to severe TR. Normal AV. M to moderate pulmonary HTN. PASP = 40-50 mmHg. 1) Minimally elevated troponin in the setting of severe anemia, tachycardia and hypertension with normal LV systolic function, likely demand ischemia, NOT acute coronary syndrome. Conservative cardiac care. 2) Hypertension with mild sinus tachycardia: Increase atenolol to 100 mg daily. Continue amlodipine. 3) Markedly elevated BNP, likely due to chronic diastolic CHF. Patient has no dyspnea at rest and no physical signs of fluid overload. Monitor. Diuretics prn. 4) Mild to moderate pulmonary hypertension, likely due LV diastolic dysfunction and valvular disease. Patient needs out-pt cardiac follow up. No further cardiac test recommended during this admission. Please call us for reconsult as needed.
[2018-05-29] MEDS: DOXYCYCLINE INJECTION 100 MG in DEXTROSE 5%-WATER 100 ML IVPB SCH ×2 (12:33→22:42)
--- NOTE | 2018-05-29 14:00 | PN ---
Physical Exam: SUBJECTIVE: Patient seen and examined at bedside. no acute events since admission. c/o pain in shoulders and hand joints. denies fever, chills ,cp, sob , n/v/d, urinary sx. OBJECTIVE: Vital Signs Period Temp Pulse Resp BP Sys/John Pulse Ox Last 24 Hr 97.5 F-102 F 89-109 20-24 103-162/58-89 93-100 GENERAL: AOX3, NAD HEAD: NCAT. EYES: Pupils equal, round and reactive to light, extraocular movements intact, EARS, NOSE, THROAT: nares patent, oropharynx clear without exudates. Moist mucous membranes. NECK: Normal range of motion, supple LUNGS: CTA B.l HEART: Regular rate and rhythm, normal S1 and S2, no m/r/g Abdomen : Soft, ND. NT , normal BS , no suprapubic tenderness UPPER EXTREMITIES: 2+ pulses, warm, well-perfused. No cyanosis. limited rom due to pain , B/L shoulder swelling , right hand finger joint swelling LOWER EXTREMITIES: 2+ pulses, warm, well-perfused. No calf tenderness. strength 5/5 lower ext extension and flexion NEUROLOGICAL: Cranial nerves II-XII intact. Normal speech. PSYCHIATRIC: Cooperative. SKIN: Warm, dry, normal turgor Laboratory Results - last 24 hr 05/28/18 05/28/18 05/28/18 17:20 17:20 17:20 WBC 22.4 H RBC 3.19 L Hgb 7.9 L Hct 24.6 L MCV 77.2 L MCH 24.8 L MCHC 32.1 RDW 19.8 H Plt Count 231 MPV 7.7 Absolute Neuts (auto) 20.2 H Total Counted 100 Neutrophils % 90.2 H Neutrophils % (Manual) 83.0 H Band Neutrophils % 4.0 Lymphocytes % 3.4 L Lymphocytes % (Manual) 5.0 L Monocytes % 5.8 Monocytes % (Manual) 7 Eosinophils % 0.2 Eosinophils % (Manual) 1.0 Basophils % 0.4 Nucleated RBC % 0 Differential Comment Man diff performed Platelet Estimate Adequate Platelet Comment Poikilocytosis 1+ Anisocytosis 1+ Ovalocytes 1+ ESR PT with INR 15.10 H INR 1.28 H PTT (Actin FS) 25.3 VBG pH 7.43 H POC VBG pCO2 35.3 L POC VBG pO2 63.7 H VBG HCO3 22.8 L VBG O2 Sat (Thomas) 90.6 H VBG Base Excess -0.8 Sodium Potassium Chloride Carbon Dioxide Anion Gap BUN Creatinine Creat Clearance w eGFR Random Glucose Lactic Acid Calcium Ferritin Total Bilirubin AST ALT Alkaline Phosphatase Troponin I C-Reactive Protein B-Natriuretic Peptide Total Protein Albumin Vitamin B12 Serum Folate TSH Urine Color Urine Appearance Urine pH Ur Specific Souris Urine Protein Urine Glucose (UA) Urine Ketones Urine Blood Urine Nitrite Urine Bilirubin Urine Urobilinogen Ur Leukocyte Esterase Urine WBC (Auto) Urine RBC (Auto) Hyaline Casts Urine Mucus RPR Titer Influenza A (Rapid) Influenza B (Rapid) 05/28/18 05/28/18 05/28/18 17:20 17:20 17:20 WBC RBC Hgb Hct MCV MCH MCHC RDW Plt Count MPV Absolute Neuts (auto) Total Counted Neutrophils % Neutrophils % (Manual) Band Neutrophils % Lymphocytes % Lymphocytes % (Manual) Monocytes % Monocytes % (Manual) Eosinophils % Eosinophils % (Manual) Basophils % Nucleated RBC % Differential Comment Platelet Estimate Platelet Comment Poikilocytosis Anisocytosis Ovalocytes ESR PT with INR INR PTT (Actin FS) VBG pH POC VBG pCO2 POC VBG pO2 VBG HCO3 VBG O2 Sat (Thomas) VBG Base Excess Sodium 136 Potassium 4.1 Chloride 106 Carbon Dioxide 24 Anion Gap 7 L BUN 22 H Creatinine 0.8 Creat Clearance w eGFR > 60 Random Glucose 85 Lactic Acid 1.1 Calcium 7.5 L Ferritin Total Bilirubin 0.6 AST 16 ALT 20 Alkaline Phosphatase 88 Troponin I 0.10 H C-Reactive Protein B-Natriuretic Peptide Total Protein 4.5 L Albumin 2.2 L Vitamin B12 Serum Folate TSH Urine Color Urine Appearance Urine pH Ur Specific Souris Urine Protein Urine Glucose (UA) Urine Ketones Urine Blood Urine Nitrite Urine Bilirubin Urine Urobilinogen Ur Leukocyte Esterase Urine WBC (Auto) Urine RBC (Auto) Hyaline Casts Urine Mucus RPR Titer Influenza A (Rapid) Negative Influenza B (Rapid) Negative 05/28/18 05/28/18 05/28/18 17:23 18:00 18:53 WBC RBC Hgb Hct MCV MCH MCHC RDW Plt Count MPV Absolute Neuts (auto) Total Counted Neutrophils % Neutrophils % (Manual) Band Neutrophils % Lymphocytes % Lymphocytes % (Manual) Monocytes % Monocytes % (Manual) Eosinophils % Eosinophils % (Manual) Basophils % Nucleated RBC % Differential Comment Platelet Estimate Platelet Comment Poikilocytosis Anisocytosis Ovalocytes ESR PT with INR INR PTT (Actin FS) VBG pH POC VBG pCO2 POC VBG pO2 VBG HCO3 VBG O2 Sat (Thomas) VBG Base Excess Sodium Potassium Chloride Carbon Dioxide Anion Gap BUN Creatinine Creat Clearance w eGFR Random Glucose Lactic Acid 1.2 Calcium Ferritin Total Bilirubin AST ALT Alkaline Phosphatase Troponin I Cancelled C-Reactive Protein B-Natriuretic Peptide Total Protein Albumin Vitamin B12 Serum Folate TSH Urine Color Yellow Urine Appearance Clear Urine pH 6.0 Ur Specific Souris 1.018 Urine Protein 1+ H Urine Glucose (UA) Negative Urine Ketones Negative Urine Blood Negative Urine Nitrite Negative Urine Bilirubin Negative Urine Urobilinogen Negative Ur Leukocyte Esterase Negative Urine WBC (Auto) 1 Urine RBC (Auto) None Hyaline Casts 1 Urine Mucus Rare RPR Titer Influenza A (Rapid) Influenza B (Rapid) 05/28/18 05/28/18 05/28/18 22:58 22:58 22:58 WBC RBC Hgb Hct MCV MCH MCHC RDW Plt Count MPV Absolute Neuts (auto) Total Counted Neutrophils % Neutrophils % (Manual) Band Neutrophils % Lymphocytes % Lymphocytes % (Manual) Monocytes % Monocytes % (Manual) Eosinophils % Eosinophils % (Manual) Basophils % Nucleated RBC % Differential Comment Platelet Estimate Platelet Comment Poikilocytosis Anisocytosis Ovalocytes ESR 44 H PT with INR INR PTT (Actin FS) VBG pH POC VBG pCO2 POC VBG pO2 VBG HCO3 VBG O2 Sat (Thomas) VBG Base Excess Sodium Potassium Chloride Carbon Dioxide Anion Gap BUN Creatinine Creat Clearance w eGFR Random Glucose Lactic Acid Calcium Ferritin Total Bilirubin AST ALT Alkaline Phosphatase Troponin I C-Reactive Protein 21.5 H B-Natriuretic Peptide Total Protein Albumin Vitamin B12 Serum Folate TSH Urine Color Urine Appearance Urine pH Ur Specific Souris Urine Protein Urine Glucose (UA) Urine Ketones Urine Blood Urine Nitrite Urine Bilirubin Urine Urobilinogen Ur Leukocyte Esterase Urine WBC (Auto) Urine RBC (Auto) Hyaline Casts Urine Mucus RPR Titer Nonreactive Influenza A (Rapid) Influenza B (Rapid) 05/28/18 05/29/18 05/29/18 22:58 06:00 06:00 WBC 17.2 H RBC 3.26 L Hgb 8.1 L Hct 25.5 L MCV 78.1 L MCH 24.8 L MCHC 31.7 L RDW 19.6 H Plt Count 235 MPV 8.2 Absolute Neuts (auto) 15.3 H Total Counted Neutrophils % 89.4 H Neutrophils % (Manual) Band Neutrophils % Lymphocytes % 3.2 L Lymphocytes % (Manual) Monocytes % 6.1 Monocytes % (Manual) Eosinophils % 0.9 D Eosinophils % (Manual) Basophils % 0.4 Nucleated RBC % 0 Differential Comment Platelet Estimate Platelet Comment Poikilocytosis Anisocytosis Ovalocytes ESR 54 H PT with INR INR PTT (Actin FS) VBG pH POC VBG pCO2 POC VBG pO2 VBG HCO3 VBG O2 Sat (Thomas) VBG Base Excess Sodium 138 Potassium 4.0 Chloride 109 H Carbon Dioxide 21 Anion Gap 8 BUN 17 Creatinine 0.7 Creat Clearance w eGFR > 60 Random Glucose 68 L Lactic Acid Calcium 7.9 L Ferritin 123.8 Total Bilirubin 0.5 AST 18 ALT 20 Alkaline Phosphatase 100 Troponin I 0.09 H 0.05 C-Reactive Protein 27.5 H B-Natriuretic Peptide 3785.8 H Total Protein 4.6 L Albumin 2.1 L Vitamin B12 1138 H Serum Folate 23 H TSH 2.28 Urine Color Urine Appearance Urine pH Ur Specific Souris Urine Protein Urine Glucose (UA) Urine Ketones Urine Blood Urine Nitrite Urine Bilirubin Urine Urobilinogen Ur Leukocyte Esterase Urine WBC (Auto) Urine RBC (Auto) Hyaline Casts Urine Mucus RPR Titer Influenza A (Rapid) Influenza B (Rapid) Active Medications Generic Name Dose Route Start Last Admin Trade Name Freq PRN Reason Stop Dose Admin Acetaminophen 650 mg 05/29/18 08:34 Tylenol - PO Q6H PRN PAIN LEVEL 7 - 10 Aripiprazole 10 mg 05/29/18 10:00 05/29/18 12:09 Abilify PO 10 mg DAILY ROSARIO Administration Atenolol 50 mg 05/29/18 10:00 05/29/18 12:09 Tenormin - PO 50 mg DAILY ROSARIO Administration Piperacillin Sod/Tazobactam 50 mls @ 100 mls/hr 05/30/18 06:00 Sod 3.375 gm/ Dextrose IVPB TID ROSARIO Protocol Piperacillin Sod/Tazobactam 50 mls @ 100 mls/hr 05/29/18 06:45 05/29/18 07:03 Sod 3.375 gm/ Dextrose IVPB 05/29/18 22:29 100 mls/hr TID ROSARIO Administration Protocol Doxycycline Hyclate 100 mg/ 100 mls @ 50 mls/hr 05/29/18 10:00 05/29/18 12:33 Dextrose IVPB 50 mls/hr BID ROSARIO Administration Sodium Chloride 1,000 mls @ 42 mls/hr 05/29/18 09:44 05/29/18 12:09 Normal Saline - IV 42 mls/hr ASDIR ROSARIO Administration Prednisone 40 mg 05/29/18 10:00 05/29/18 12:09 Deltasone - PO 40 mg DAILY ROSARIO Administration CT/ABDOMEN & PELVIS CT W/O CONTR CT/CHEST CT WITHOUT CONTRAST CHEST CT without contrast Clinical information: sepsis Multiplanar imaging of the chest was performed. As requested no intravenous contrast was administered. No prior chest CT study is available at this facility for direct comparison. Small bilateral pleural effusions are noted layering posteriorly with associated bibasilar compressive atelectasis, left more than right. A superimposed left basilar infiltrate would be difficult to exclude on the basis of CT only. A small somewhat subtle patchy infiltrate is noted within the anterior segment of the left upper lobe. Left atrial dilatation is seen. No pericardial effusion is noted. The main pulmonary artery is dilated with a 3.4 cm diameter consistent with increased pulmonary arterial pressure. The trachea and central bronchi demonstrate no discrete abnormality. There is no aortic aneurysm. No obvious lymphadenopathy is identified on noncontrast imaging. A large hiatal hernia is seen. IMPRESSION: A small patchy left upper lobe infiltrate is seen. Small bilateral pleural effusions are noted with associated bibasilar compressive atelectasis. A superimposed left lower lobe infiltrate would be difficult to exclude on the basis of imaging only. Correlate clinically. Cardiomegaly. Dilatation of the main pulmonary artery is seen consistent with increased pulmonary arterial pressure. Large hiatal hernia. A 2 cm right thyroid lobe nodule is seen. Correlate with sonography. There is partial imaging of at least moderate bilateral glenohumeral joint effusions. Small calcified loose osteochondral bodies are noted bilaterally. Multilevel thoracic vertebral body compression fractures which appear to be chronic. ABDOMEN AND PELVIS CT without contrast Clinical information: sepsis Multiplanar imaging was performed. As requested no intravenous or enteric contrast was administered. No evidence of pneumoperitoneum, free intraperitoneal fluid or bowel obstruction. In comparison to a prior CT exam of 08/03/2015 interval passage/extraction is noted of a small distal left ureteral calculus. A stable 0.2 cm left renal nonobstructing calculus is visualized. A 0.2 cm right renal lower pole nonobstructing calculus is seen which may have been present on the previous exam. Interval development of a small amount of perirenal fluid accumulation is noted bilaterally. There is no hydronephrosis. Incidental note is again made of a left renal cortical cyst. A stable 3.7 cm left adnexal cystic structure is noted. There is at least moderate diffuse pancreatic atrophy. The liver, spleen, adrenal glands and gallbladder demonstrate no obvious noncontrast pathology. There is no aortic aneurysm. No obvious lymphadenopathy is seen. The partially visualized appendix appears unremarkable. Colonic diverticulosis is noted without evidence of acute diverticulitis. No gross noncontrast small bowel abnormality is noted. IMPRESSION: Small bilateral nonobstructing renal calculi. In comparison to a prior CT study of 08/03/2015 interval development of a small amount of nonspecific perirenal fluid is noted. Correlate with follow-up CT. Stable 3.7 cm left adnexal cystic structure. Correlate with 6 month follow-up sonography or CT/MRI to document continued stability. Large hiatal hernia. Mild chronic stable L4 vertebral body compression fracture. ASSESSMENT/PLAN: 72 yo F PMH of HTN, Depression, OA, RA, Lupus , CHF, asthma , Sepsis (w/recent admission @ [facility] in the past month), p/w family for pain and generalized weakness .admitted to med- surg due to RA flare up sepsis 2/2 HPNA -ct chest with upper and lower lobe infiltrate, small bilateral pleural effusion , dilatation pulmonary artery and hiatal hernia -wbc 22.4 , rectal temp 102 in ED -zosyn daily , doxycycline 100 BID -vanco given IN ED -gentle hydration IV fluids NS @ 42 cc/hr -f/u bcx, ucx, RSV -urine legionella AG neg RA flare up -complain of B/l shoulder pain -on prednisone at home will cont with 40 daily and Vit D -Rheumatology consult for possible joint aspiration -CT chest shows B/L shoulder(glomerulohumeral ) effusion CHF - markedly elevated BNP 3785, doesn't appear to be in decompensated CHF -stable in NAD -resume home meds -echo Elevated trop likley demand ischedmia - markedly elevated BNP 3785 -downtrending trop 0.1...0.09...0.05 -ECG revealed sinus rhythm with prolong QT, inferior Q waves and normal ST-T -s/p ASA 325 -cardio consult -Echo to assess LV and RV size, systolic function, wall motion and pulmonary pressure. Asthma -stable microcytic Anemia -likely due to chronic disease -H/H 7.9...8.1 -f/u iron studies, ferritin nl chronic L4 compression fracture -asymptomatic -f.u out pt -PT thyroid nodule -[address] scan -repeat images as out pt -TSH nl L-ovary cyst -3.7 cm , repeat images as out pt in 6 months Bilateral non obstructing renal stones with nonspecific aissatou-renal fluid. FEN NS @ 42 cc/hr monitor lytes low sodium diet Ppx DVTS: SQH tid GI Protonix po Dispo med surg code: full code daughter has health care proxy Pati Ventura [phone] Visit type - Emergency Visit Emergency Visit: Yes ED Registration Date: 05/28/18 Care time: The patient presented to the Emergency Department on the above date and was hospitalized for further evaluation of their emergent condition. - New Patient This patient is new to me today: Yes Date on this admission: 05/29/18 - Critical Care Critical Care patient: No
--- NOTE | 2018-05-29 14:04 | ECHO ---
Name: PETE GOSS Exam:Adult Echocardiogram Study Date: 05/29/2018 10:43 AM Age: 72 yrs Reason For Study: TROPONEMIA Height: 59 in Weight: 126 lb BSA: 1.5 m2 MMode/2D Measurements & Calculations IVSd: 1.2 cm Ao root diam: 2.5 cm LVIDd: 4.1 cm LA dimension: 4.2 cm LVIDs: 2.6 cm LVPWd: 0.94 cm EDV(Teich): 75.9 ml LAV (MOD-bp): 108.0 ml ESV(Tetaty): 24.3 ml TAPSE: 2.4 cm Doppler Measurements & Calculations MV V2 max: 212.2 cm/sec MV E max dipak: 84.4 cm/sec MV max P.0 mmHg MV A max dipak: 180.9 cm/sec MV V2 mean: 131.3 cm/sec MV E/A: 0.47 MV mean P.8 mmHg MV V2 VTI: 34.2 cm Ao V2 max: 229.2 cm/sec AI max dipak: 418.0 cm/sec Ao max P.0 mmHg AI max P.1 mmHg Ao V2 mean: 148.4 cm/sec AI dec slope: 286.1 cm/sec2 Ao mean P.9 mmHg Ao V2 VTI: 38.7 cm AI P1/2t: 427.9 msec LV V1 max P.6 mmHg MR max dipak: 476.7 cm/sec LV V1 max: 197.4 cm/sec MR max P.0 mmHg TR max dipak: 280.1 cm/sec Med Peak E' Dipak: 3.5 cm/sec TR max P.6 mmHg Med E/e': 24.2 Lat Peak E' Dipak: 3.9 cm/sec Lat E/e': 21.6 Procedure The study was technically difficult with many images being suboptimal in quality. Left Ventricle The left ventricular size, thickness and function are normal. The left ventricle is not well visualiz ed. The left ventricular ejection fraction is normal. E/A reversal consistent with but not diagnostic of poor LV compliance. Regional wall motion abnormalities cannot be excluded due to limited visualization. Right Ventricle The right ventricle is normal in size and function. Atria The left atrium is severely dilated. The right atrium is moderately dilated. Mitral Valve There is moderate mitral valve thickening. There is moderate to severe mitral annular calcification. There is moderate mitral stenosis. Functional mitral valve stenosis secondary to MAC. There is mild to moderat e mitral regurgitation. Tricuspid Valve There is mild tricuspid valve thickening. There is no tricuspid stenosis. There is moderate tricuspid regurgitation. Right ventricular systolic pressure is elevated at 40-50mmHg. Aortic Valve The aortic valve is normal in structure and function. No hemodynamically significant valvular aortic stenosis. Moderate to severe aortic regurgitation. Pulmonic Valve The pulmonic valve is not well visualized. Great Vessels The aortic root is normal size. Pericardium/Pleura There is no pericardial effusion. Interpretation Summary The study was technically difficult with many images being suboptimal in quality. The left ventricular size, thickness and function are normal The left ventricle is not well visualized. The left ventricular ejection fraction is normal. Regional wall motion abnormalities cannot be excluded due to limited visualization. There is moderate tricuspid regurgitation. The left atrium is severely dilated. The right atrium is moderately dilated. E/A reversal consistent with but not diagnostic of poor LV compliance There is moderate mitral stenosis. There is moderate mitral valve thickening. There is mild to moderate mitral regurgitation. There is moderate to severe mitral annular calcification. Functional mitral valve stenosis secondary to MAC Right ventricular systolic pressure is elevated at 40-50mmHg. MD Benson Sawyer 05/29/2018 02:03 PM
[2018-05-29] MEDS: PANTOPRAZOLE 40 MG TABLET (FP) PO SCH (15:29)
[2018-05-29] MEDS: HEPARIN NA (PORCINE) 5,000 UNITS/ML 1ML VIAL SQ SCH ×2 (15:29→21:58)
--- NOTE | 2018-05-29 16:16 | PN ---
Teaching Attending Note Name of Resident: Gurvinder Garnett ATTENDING PHYSICIAN STATEMENT I saw and evaluated the patient. I reviewed the resident's note and discussed the case with the resident. I agree with the resident's findings and plan as documented. SUBJECTIVE: Complains of shoulder pain. Otherwise feels okay. No cough/sputum/ hemoptysis. Denies fever despite T 102 OBJECTIVE: Afebrile currently, Tmax 102 at presentation. Hemodynamically stable. Last Vital Signs Temp Pulse Resp BP Pulse Ox 99 F 100 H 22 H 152/72 98 05/29/18 09:00 05/29/18 09:00 05/29/18 09:00 05/29/18 09:00 05/29/18 09:00 HEENT - Atraumatic, Normocephalic. Heart - S1, S2, RRR Lungs - left sided crackles, decreased bibasal air entry Abdomen- soft, non-tender. Bowel Sounds normal. Extremities - no calf tenderness. Laboratory Results - last 24 hr 05/28/18 05/28/18 05/28/18 17:20 17:20 17:20 WBC 22.4 H RBC 3.19 L Hgb 7.9 L Hct 24.6 L MCV 77.2 L MCH 24.8 L MCHC 32.1 RDW 19.8 H Plt Count 231 MPV 7.7 Absolute Neuts (auto) 20.2 H Total Counted 100 Neutrophils % 90.2 H Neutrophils % (Manual) 83.0 H Band Neutrophils % 4.0 Lymphocytes % 3.4 L Lymphocytes % (Manual) 5.0 L Monocytes % 5.8 Monocytes % (Manual) 7 Eosinophils % 0.2 Eosinophils % (Manual) 1.0 Basophils % 0.4 Nucleated RBC % 0 Differential Comment Man diff performed Platelet Estimate Adequate Platelet Comment Poikilocytosis 1+ Anisocytosis 1+ Ovalocytes 1+ ESR PT with INR 15.10 H INR 1.28 H PTT (Actin FS) 25.3 VBG pH 7.43 H POC VBG pCO2 35.3 L POC VBG pO2 63.7 H VBG HCO3 22.8 L VBG O2 Sat (Thomas) 90.6 H VBG Base Excess -0.8 Sodium Potassium Chloride Carbon Dioxide Anion Gap BUN Creatinine Creat Clearance w eGFR Random Glucose Lactic Acid Calcium Ferritin Total Bilirubin AST ALT Alkaline Phosphatase Troponin I C-Reactive Protein B-Natriuretic Peptide Total Protein Albumin Vitamin B12 Serum Folate TSH Urine Color Urine Appearance Urine pH Ur Specific Ruby Urine Protein Urine Glucose (UA) Urine Ketones Urine Blood Urine Nitrite Urine Bilirubin Urine Urobilinogen Ur Leukocyte Esterase Urine WBC (Auto) Urine RBC (Auto) Hyaline Casts Urine Mucus RPR Titer Influenza A (Rapid) Influenza B (Rapid) 05/28/18 05/28/18 05/28/18 17:20 17:20 17:20 WBC RBC Hgb Hct MCV MCH MCHC RDW Plt Count MPV Absolute Neuts (auto) Total Counted Neutrophils % Neutrophils % (Manual) Band Neutrophils % Lymphocytes % Lymphocytes % (Manual) Monocytes % Monocytes % (Manual) Eosinophils % Eosinophils % (Manual) Basophils % Nucleated RBC % Differential Comment Platelet Estimate Platelet Comment Poikilocytosis Anisocytosis Ovalocytes ESR PT with INR INR PTT (Actin FS) VBG pH POC VBG pCO2 POC VBG pO2 VBG HCO3 VBG O2 Sat (Thomas) VBG Base Excess Sodium 136 Potassium 4.1 Chloride 106 Carbon Dioxide 24 Anion Gap 7 L BUN 22 H Creatinine 0.8 Creat Clearance w eGFR > 60 Random Glucose 85 Lactic Acid 1.1 Calcium 7.5 L Ferritin Total Bilirubin 0.6 AST 16 ALT 20 Alkaline Phosphatase 88 Troponin I 0.10 H C-Reactive Protein B-Natriuretic Peptide Total Protein 4.5 L Albumin 2.2 L Vitamin B12 Serum Folate TSH Urine Color Urine Appearance Urine pH Ur Specific Ruby Urine Protein Urine Glucose (UA) Urine Ketones Urine Blood Urine Nitrite Urine Bilirubin Urine Urobilinogen Ur Leukocyte Esterase Urine WBC (Auto) Urine RBC (Auto) Hyaline Casts Urine Mucus RPR Titer Influenza A (Rapid) Negative Influenza B (Rapid) Negative 05/28/18 05/28/18 05/28/18 17:23 18:00 18:53 WBC RBC Hgb Hct MCV MCH MCHC RDW Plt Count MPV Absolute Neuts (auto) Total Counted Neutrophils % Neutrophils % (Manual) Band Neutrophils % Lymphocytes % Lymphocytes % (Manual) Monocytes % Monocytes % (Manual) Eosinophils % Eosinophils % (Manual) Basophils % Nucleated RBC % Differential Comment Platelet Estimate Platelet Comment Poikilocytosis Anisocytosis Ovalocytes ESR PT with INR INR PTT (Actin FS) VBG pH POC VBG pCO2 POC VBG pO2 VBG HCO3 VBG O2 Sat (Thomas) VBG Base Excess Sodium Potassium Chloride Carbon Dioxide Anion Gap BUN Creatinine Creat Clearance w eGFR Random Glucose Lactic Acid 1.2 Calcium Ferritin Total Bilirubin AST ALT Alkaline Phosphatase Troponin I Cancelled C-Reactive Protein B-Natriuretic Peptide Total Protein Albumin Vitamin B12 Serum Folate TSH Urine Color Yellow Urine Appearance Clear Urine pH 6.0 Ur Specific Ruby 1.018 Urine Protein 1+ H Urine Glucose (UA) Negative Urine Ketones Negative Urine Blood Negative Urine Nitrite Negative Urine Bilirubin Negative Urine Urobilinogen Negative Ur Leukocyte Esterase Negative Urine WBC (Auto) 1 Urine RBC (Auto) None Hyaline Casts 1 Urine Mucus Rare RPR Titer Influenza A (Rapid) Influenza B (Rapid) 05/28/18 05/28/18 05/28/18 22:58 22:58 22:58 WBC RBC Hgb Hct MCV MCH MCHC RDW Plt Count MPV Absolute Neuts (auto) Total Counted Neutrophils % Neutrophils % (Manual) Band Neutrophils % Lymphocytes % Lymphocytes % (Manual) Monocytes % Monocytes % (Manual) Eosinophils % Eosinophils % (Manual) Basophils % Nucleated RBC % Differential Comment Platelet Estimate Platelet Comment Poikilocytosis Anisocytosis Ovalocytes ESR 44 H PT with INR INR PTT (Actin FS) VBG pH POC VBG pCO2 POC VBG pO2 VBG HCO3 VBG O2 Sat (Thomas) VBG Base Excess Sodium Potassium Chloride Carbon Dioxide Anion Gap BUN Creatinine Creat Clearance w eGFR Random Glucose Lactic Acid Calcium Ferritin Total Bilirubin AST ALT Alkaline Phosphatase Troponin I C-Reactive Protein 21.5 H B-Natriuretic Peptide Total Protein Albumin Vitamin B12 Serum Folate TSH Urine Color Urine Appearance Urine pH Ur Specific Ruby Urine Protein Urine Glucose (UA) Urine Ketones Urine Blood Urine Nitrite Urine Bilirubin Urine Urobilinogen Ur Leukocyte Esterase Urine WBC (Auto) Urine RBC (Auto) Hyaline Casts Urine Mucus RPR Titer Nonreactive Influenza A (Rapid) Influenza B (Rapid) 05/28/18 05/29/18 05/29/18 22:58 06:00 06:00 WBC 17.2 H RBC 3.26 L Hgb 8.1 L Hct 25.5 L MCV 78.1 L MCH 24.8 L MCHC 31.7 L RDW 19.6 H Plt Count 235 MPV 8.2 Absolute Neuts (auto) 15.3 H Total Counted Neutrophils % 89.4 H Neutrophils % (Manual) Band Neutrophils % Lymphocytes % 3.2 L Lymphocytes % (Manual) Monocytes % 6.1 Monocytes % (Manual) Eosinophils % 0.9 D Eosinophils % (Manual) Basophils % 0.4 Nucleated RBC % 0 Differential Comment Platelet Estimate Platelet Comment Poikilocytosis Anisocytosis Ovalocytes ESR 54 H PT with INR INR PTT (Actin FS) VBG pH POC VBG pCO2 POC VBG pO2 VBG HCO3 VBG O2 Sat (Thomas) VBG Base Excess Sodium 138 Potassium 4.0 Chloride 109 H Carbon Dioxide 21 Anion Gap 8 BUN 17 Creatinine 0.7 Creat Clearance w eGFR > 60 Random Glucose 68 L Lactic Acid Calcium 7.9 L Ferritin 123.8 Total Bilirubin 0.5 AST 18 ALT 20 Alkaline Phosphatase 100 Troponin I 0.09 H 0.05 C-Reactive Protein 27.5 H B-Natriuretic Peptide 3785.8 H Total Protein 4.6 L Albumin 2.1 L Vitamin B12 1138 H Serum Folate 23 H TSH 2.28 Urine Color Urine Appearance Urine pH Ur Specific Ruby Urine Protein Urine Glucose (UA) Urine Ketones Urine Blood Urine Nitrite Urine Bilirubin Urine Urobilinogen Ur Leukocyte Esterase Urine WBC (Auto) Urine RBC (Auto) Hyaline Casts Urine Mucus RPR Titer Influenza A (Rapid) Influenza B (Rapid) Current Medications Generic Name Dose Route Start Last Admin Trade Name Freq PRN Reason Stop Dose Admin Acetaminophen 650 mg 05/29/18 08:34 Tylenol - PO Q6H PRN PAIN LEVEL 7 - 10 Aripiprazole 10 mg 05/29/18 10:00 05/29/18 12:09 Abilify PO 10 mg DAILY ROSARIO Administration Atenolol 50 mg 05/29/18 10:00 05/29/18 12:09 Tenormin - PO 50 mg DAILY ROSARIO Administration Heparin Sodium (Porcine) 5,000 unit 05/29/18 14:00 05/29/18 15:29 Heparin - SQ 5,000 unit TID ROSARIO Administration Piperacillin Sod/Tazobactam 50 mls @ 100 mls/hr 05/30/18 06:00 Sod 3.375 gm/ Dextrose IVPB TID ROSARIO Protocol Piperacillin Sod/Tazobactam 50 mls @ 100 mls/hr 05/29/18 06:45 05/29/18 15:30 Sod 3.375 gm/ Dextrose IVPB 05/29/18 22:29 100 mls/hr TID ROSARIO Administration Protocol Doxycycline Hyclate 100 mg/ 100 mls @ 50 mls/hr 05/29/18 10:00 05/29/18 12:33 Dextrose IVPB 50 mls/hr BID ROSARIO Administration Sodium Chloride 1,000 mls @ 42 mls/hr 05/29/18 09:44 05/29/18 12:09 Normal Saline - IV 42 mls/hr ASDIR ROSARIO Administration Pantoprazole Sodium 40 mg 05/29/18 14:00 05/29/18 15:29 Protonix - PO 40 mg DAILY ROSARIO Administration Prednisone 40 mg 05/29/18 10:00 05/29/18 12:09 Deltasone - PO 40 mg DAILY ROSARIO Administration ASSESSMENT AND PLAN: 72 year old female with history of HTN, Depression, OA, RA, Lupus, Asthma, and recent hospitalization for Pneumonia and UTI at [facility], complains of generalized pain, myalgias, shoulder/hand discomfort, found to have fever at presentation and pneumonia on CT Chest. CT CHEST - DELFINO pneumonia and bilateral pleural effusions with cardiomegaly and dilated pulmonary A. 2cm thyroid nodule, b/l glenohumeral joint effusions with multiple chronic thoracic compressions as well as chronic L4 compression fracture. She is seen to have b/l glenohumeral joint effusions. CT ABDO/PELVIS - shows 3.7 cm cyst on the L-ovary with recommendation for 6 month imaging followup. Bilateral nonobstructing renal stones with nonspecific perirenal fluid. 1. Sepsis secondary to HCAP Fever, Leukocytosis, tachypnea - resolving DELFINO infiltrate on CT Chest Continue Zosyn/Doxy pending Urine legionella/Strep Ag and Blood cultures. Currently Hemodynamically Stable 2. Acute RA/Lupus Flare with bilateral Shoulder and hands discomfort and tenderness Bilateral glenohumeral effusions on imaging Resumed on increased dose of Prednisone 40mg daily. Rheumatology consulted. ESR 54/CRP 27.5 3. Troponin Egression, elevated BNP, bilateral effusions, Cardiomegaly No Chest Pain/palpitations TnI max 0.1, BNP 3786 Echo - Moderate MS, mild to mod MR. Normal EF. Cardiology consulted. 4. HTN - Continue Atenolol. 5. Hypoalbuminemia, likely sec to chronic disease. Nutrition consulted. 6. Chronic compression fracture - currently pain free 7. Bilateral Non-obstructing Nephrolithiasis - Stable. 8. Thyroid nodule -2cm nodule incidental finding. For US as out-patient. 9. R Adnexal Cyst, 3.7cm - recommend repeat imaging in 6 months. 10. Microcytic Anemia - no evidence of acute blood loss. Ferritin/Iron levels requested. DVT Px - Heparin SQ
--- NOTE | 2018-05-29 16:59 | CONSULT ---
Consult Consult Specialty:: Rheumatology - History of Present Illness History of Present Illness: 72 year old female with a PMH of HTN, Depression, Sepsis (w/recent admission @ [facility]), Rheumatoid Arthritis admitted with diffuse pain. I spoke with her Accounting Software Specialist. Dr. Miranda, who saw her only once on March of this year. Fourteen years ago apparently the patient was diagnosed with rheumatoid arthritis and lupus. She was treated many years ago with Orencia IV and he did not have data of other DMARDs. When he saw the patient she did not have active joints. Laboratory work-up revealed rheumatoid factor 57, CCP > 250 and NADIA negative. ESR was elevated. She was on Prednisone 10 mg/d, he suggested to decrease the dose to 5 mg and according to response consider starting a DMARD. In this admission the patient reports that yesterday she woke up with severe diffuse pain. CT scan of the chest: A small patchy left upper lobe infiltrate, small bilateral pleural effusions, cardiomegaly. CT abdomen s mall bilateral nonobstructing renal calculi and small nonspecific perirenal fluid. Labsd WBC 17.2, ESR 54, creatinine 0.7, LFT normal. - History Source History Provided By: Patient, Medical Record - Past Medical History Cardio/Vascular: Yes: HTN Rheumatology: Yes: Other (See HPI) - Alcohol/Substance Use Hx Alcohol Use: No - Smoking History Smoking history: Unknown if ever smoked Have you smoked in the past 12 months: No Aproximately how many cigarettes per day: 0 Home Medications - Allergies Allergies/Adverse Reactions: Allergies Allergy/AdvReac Type Severity Reaction Status Date / Time No Known Allergies Allergy Verified 01/11/12 15:48 - Home Medications Home Medications: Ambulatory Orders Amphet Asp/Amphet/D-Amphet [Adderall 20 mg Tablet] 20 mg PO DAILY 01/11/12 Amphet Asp/Amphet/D-Amphet [Adderall 20 mg Tablet] 60 mg PO HS 01/11/12 Biotin 1 tab PO DAILY 01/11/12 Cholecalciferol (Vitamin D3) [Vitamin D3] 400 unit PO DAILY 01/11/12 Clonazepam 2 mg PO DAILY 01/11/12 Phenelzine Sulfate [Nardil] 15 mg PO BID 01/11/12 Amlodipine Besylate [Norvasc -] 5 mg PO DAILY 05/28/18 Aripiprazole 10 mg PO DAILY 05/28/18 Atenolol [Tenormin -] 50 mg PO DAILY 05/28/18 Ferrous Sulfate [Iron] 0 mg PO DAILY 05/28/18 Leflunomide [Arava] 20 mg PO DAILY 05/28/18 predniSONE [Deltasone -] 5 mg PO DAILY 05/28/18 Dextroamphetamine/Amphetamine [Adderall Xr 20 mg Capsule] 20 mg PO DAILY Dextroamphetamine/Amphetamine [Adderall Xr 30 mg Capsule] 30 mg PO BID 05/29/18 Furosemide 40 mg PO DAILY 05/29/18 Hydroxychloroquine Sulfate 200 mg PO BID 05/29/18 Review of Systems - Review of Systems Constitutional: reports: Malaise Eyes: reports: No Symptoms HENT: reports: No Symptoms Neck: reports: No Symptoms Cardiovascular: reports: No Symptoms Respiratory: reports: No Symptoms Gastrointestinal: reports: No Symptoms Musculoskeletal: reports: Other (See HPI) Neurological: reports: No Symptoms Physical Exam Vital Signs: Vital Signs Temperature 99 F 05/29/18 09:00 Pulse Rate 100 H 05/29/18 09:00 Respiratory Rate 22 H 05/29/18 09:00 Blood Pressure 152/72 05/29/18 09:00 O2 Sat by Pulse Oximetry (%) 98 05/29/18 09:00 Constitutional: Yes: Moderate Distress Eyes: Yes: WNL HENT: Yes: WNL Neck: Yes: WNL Cardiovascular: Yes: Other (S1 and S2 normal. 2/6 systolic muyurmur eight parasternal line and 2nd intercostal space.) Respiratory: Yes: Other (Bilateral basal coarse crackles.) Musculoskeletal: Yes: Other (Righ hand: swelling of the 2ns and 3rd PIPs. Left hand: swelling of 3rd and 4th MCPs and all PIPs. S/P left knee TJR. The right knee was tender and swollen.) Labs: CBC, BMP 05/29/18 06:00 05/29/18 06:00 Laboratory Tests 05/28/18 05/29/18 05/29/18 18:00 06:00 06:00 ESR 54 H Ferritin 123.8 Total Bilirubin 0.5 AST 18 ALT 20 Alkaline Phosphatase 100 Troponin I 0.05 C-Reactive Protein 27.5 H B-Natriuretic Peptide 3785.8 H Total Protein 4.6 L Albumin 2.1 L Vitamin B12 1138 H Serum Folate 23 H TSH 2.28 Urine Color Yellow Urine Appearance Clear Urine pH 6.0 Ur Specific [place] 1.018 Urine Protein 1+ H Urine Glucose (UA) Negative Urine Ketones Negative Urine Blood Negative Urine Nitrite Negative Urine Bilirubin Negative Urine Urobilinogen Negative Ur Leukocyte Esterase Negative Urine WBC (Auto) 1 Urine RBC (Auto) None Hyaline Casts 1 Urine Mucus Rare Problem List - Problems (1) Rheumatoid arthritis, seropositive, multiple sites Assessment/Plan: Sero-positive rheumatoid arthritis, with active disease. It is unlikely that the patient has lupus. Recent flare-up probably related to decreased in Prednisone dose from 10 mg /d to 5 mg/d. In the hospital she received 40 mg PO. Probably the patient does not have sepsis. Plan: I suggest to decrease Prednisone to 10 mg/d. She should continue her follow-up with her toll gate keeper (Dr. Miranda) who will start her on a DMARD as outpatient. Code(s): M05.79 - RHEU ARTHRITIS W RHEU FACTOR MULT SITE W/O ORG/SYS INVOLV
[2018-05-29] MEDS: POLYETHYLENE GLYCOL 3350 119 GM BTL PO SCH (20:40)
[2018-05-29] MEDS ORDERED: PT OWN MED DRAWER 7, Y5N ONE (21:49)
[2018-05-29] MEDS: DOCUSATE SODIUM 100 MG CAPSULE (FP) PO SCH (21:58)
[2018-05-29] MEDS ORDERED: SENNOSIDES 8.6MG TABLET (FP) PO SCH (22:00)
[2018-05-29] MEDS: ACETAMINOPHEN 325 MG TABLET (FP) PO PRN (23:10)
[2018-05-30 04:13] LABS: SERUM IRON SATURATION 3 % (15-55); TOTAL IRON BINDING CAPACITY 247 ug/dL (250-450); UIBC 239 ug/dL (118-369)
[2018-05-30] MEDS ORDERED: PIPERACILLIN/TAZOB 3.375 GM 3.375 GM in DEXTROSE 5%-WATER - 50 ML IVPB SCH (06:00)
[2018-05-30] MEDS: HEPARIN NA (PORCINE) 5,000 UNITS/ML 1ML VIAL SQ SCH ×2 (06:00→14:09)
[2018-05-30 07:30] LABS: BASO % 0.3 % (0-2.0); EOS % 0.2 % (0-4.5); HEMATOCRIT 23.3 % (32.4-45.2); HEMOGLOBIN 7.5 GM/dL (10.7-15.3); LYMPH % 4.4 % (8-40); MCH 24.8 pg (25.7-33.7); MCHC 32.2 g/dl (32.0-36.0); MEAN CELL VOLUME 77.1 fl (80-96); MEAN PLT VOLUME 8.3 fl (7.5-11.1); MONO % 5.8 % (3.8-10.2); NEUT % 89.3 % (42.8-82.8); PLATELET COUNT 212 K/MM3 (134-434); RBC 3.03 M/mm3 (3.60-5.2); RDW 20.4 % (11.6-15.6); WHITE BLOOD COUNT 13.8 K/mm3 (4.0-10.0)
[2018-05-30 08:02] LABS: ANION GAP 6 MMOL/L (8-16); BLOOD UREA NITROGEN 23 mg/dL (7-18); CALCIUM 7.8 mg/dL (8.5-10.1); CHLORIDE 112 mmol/L (98-107); CO2 23 mmol/L (21-32); CREATININE 0.9 mg/dL (0.55-1.3); GLUCOSE,RANDOM 88 mg/dL (74-106); POTASSIUM 3.9 mmol/L (3.5-5.1); SODIUM 141 mmol/L (136-145)
[2018-05-30] MEDS: DOXYCYCLINE INJECTION 100 MG in DEXTROSE 5%-WATER 100 ML IVPB SCH (09:25)
[2018-05-30] MEDS: PANTOPRAZOLE 40 MG TABLET (FP) PO SCH (09:25)
[2018-05-30] MEDS: ACETAMINOPHEN 325 MG TABLET (FP) PO PRN (09:25)
[2018-05-30] MEDS: ATENOLOL 50 MG TABLET (FP) PO SCH (09:26)
[2018-05-30] MEDS: ARIPiprazole 10 MG TABLET PO SCH (09:30)
[2018-05-30] MEDS: POLYETHYLENE GLYCOL 3350 119 GM BTL PO SCH (09:31)
[2018-05-30] MEDS: DOCUSATE SODIUM 100 MG CAPSULE (FP) PO SCH (09:31)
[2018-05-30] MEDS ORDERED: FERROUS SO4 325 MG TABLET (FP) PO SCH (10:00)
[2018-05-30] MEDS ORDERED: amLODIPine BESYLATE 5 MG TABLET (FP) PO SCH (10:45)
[2018-05-30] MEDS ORDERED: FUROSEMIDE 40 MG TABLET (FP) PO SCH (10:45)
[2018-05-30] MEDS ORDERED: IRON SUCROSE INJECTION 200 MG in SODIUM CHLORIDE 90 ML IVPB ONE (11:30)
--- NOTE | 2018-05-30 13:05 | PN ---
Teaching Attending Note Name of Resident: Gurvinder Garnett ATTENDING PHYSICIAN STATEMENT I saw and evaluated the patient. I reviewed the resident's note and discussed the case with the resident. I agree with the resident's findings and plan as documented. SUBJECTIVE: Feeling much improved. No cough/sputum/hemoptysis. No further fevers. OBJECTIVE: Afebrile, Hemodynamically stable. Comfortable on Room Air. Last Vital Signs Temp Pulse Resp BP Pulse Ox 98.1 F 78 16 135/74 95 05/30/18 08:36 05/30/18 11:44 05/30/18 11:44 05/30/18 11:44 05/30/18 08:00 HEENT - Atraumatic, Normocephalic. Heart - S1, S2, SM Lungs - left sided crackles, decreased bibasal air entry Abdomen- soft, non-tender. Bowel Sounds normal. Extremities - no calf tenderness, bruising LEs. Laboratory Results - last 24 hr 05/28/18 05/29/18 05/30/18 22:58 06:00 06:00 WBC 13.8 H RBC 3.03 L Hgb 7.5 L Hct 23.3 L MCV 77.1 L MCH 24.8 L MCHC 32.2 RDW 20.4 H Plt Count 212 MPV 8.3 Absolute Neuts (auto) 12.3 H Neutrophils % 89.3 H Lymphocytes % 4.4 L D Monocytes % 5.8 Eosinophils % 0.2 Basophils % 0.3 Nucleated RBC % 0 Sodium Potassium Chloride Carbon Dioxide Anion Gap BUN Creatinine Creat Clearance w eGFR Random Glucose Calcium Iron 8 L TIBC 247 L Iron Saturation 3 L Ferritin HIV Genotype Non reactive 05/30/18 06:00 WBC RBC Hgb Hct MCV MCH MCHC RDW Plt Count MPV Absolute Neuts (auto) Neutrophils % Lymphocytes % Monocytes % Eosinophils % Basophils % Nucleated RBC % Sodium 141 Potassium 3.9 Chloride 112 H Carbon Dioxide 23 Anion Gap 6 L BUN 23 H Creatinine 0.9 Creat Clearance w eGFR > 60 Random Glucose 88 Calcium 7.8 L Iron TIBC Iron Saturation Ferritin 143.1 HIV Genotype Current Medications Generic Name Dose Route Start Last Admin Trade Name Freq PRN Reason Stop Dose Admin Acetaminophen 650 mg 05/29/18 08:34 05/30/18 09:25 Tylenol - PO 650 mg Q6H PRN Administration PAIN LEVEL 7 - 10 Amlodipine Besylate 5 mg 05/30/18 10:45 05/30/18 11:31 Norvasc - PO 5 mg DAILY ROSARIO Administration Aripiprazole 10 mg 05/29/18 10:00 05/30/18 09:30 Abilify PO 10 mg DAILY ROSARIO Administration Atenolol 50 mg 05/29/18 10:00 05/30/18 09:26 Tenormin - PO 50 mg DAILY ROSARIO Administration Docusate Sodium 100 mg 05/29/18 22:00 05/30/18 09:31 Colace - PO Not Given BID ROSARIO Ferrous Sulfate 325 mg 05/30/18 10:00 05/30/18 09:25 Feosol - PO 325 mg BID ROSARIO Administration Furosemide 40 mg 05/30/18 10:45 05/30/18 11:31 Lasix - PO 40 mg DAILY ROSARIO Administration Heparin Sodium (Porcine) 5,000 unit 05/29/18 14:00 05/30/18 06:00 Heparin - SQ 5,000 unit TID ROSARIO Administration Piperacillin Sod/Tazobactam 50 mls @ 100 mls/hr 05/30/18 06:00 Sod 3.375 gm/ Dextrose IVPB TID ROSARIO Protocol Doxycycline Hyclate 100 mg/ 100 mls @ 50 mls/hr 05/29/18 10:00 05/30/18 09:25 Dextrose IVPB 50 mls/hr BID ROSARIO Administration Pantoprazole Sodium 40 mg 05/29/18 14:00 05/30/18 09:25 Protonix - PO 40 mg DAILY ROSARIO Administration Polyethylene Glycol 17 gm 05/29/18 20:30 05/30/18 09:31 Miralax (For Daily Use) - PO Not Given DAILY ROSARIO Prednisone 10 mg 05/29/18 17:04 05/30/18 09:25 Deltasone - PO 10 mg DAILY ROSARIO Administration Senna 2 tab 05/29/18 22:00 05/29/18 21:58 Senna - PO 2 tab HS ROSARIO Administration ASSESSMENT AND PLAN: 72 year old female with history of HTN, Depression, OA, RA, Asthma, and recent hospitalization for Pneumonia and UTI at [facility], complains of generalized pain, myalgias, shoulder/hand discomfort, found to have fever at presentation and pneumonia on CT Chest. CT CHEST - DELFINO pneumonia and bilateral pleural effusions with cardiomegaly and dilated pulmonary A. 2cm thyroid nodule, b/l glenohumeral joint effusions with multiple chronic thoracic compressions as well as chronic L4 compression fracture. She is seen to have b/l glenohumeral joint effusions. CT ABDO/PELVIS - shows 3.7 cm cyst on the L-ovary with recommendation for 6 month imaging followup. Bilateral nonobstructing renal stones with nonspecific perirenal fluid. 1. Sepsis secondary to HCAP Fever, Leukocytosis, tachypnea - resolved DELFINO infiltrate on CT Chest Urine legionella/Strep Ag neg, Blood cultures negative. Treated with IV Zosyn/Doxy. Currently Hemodynamically Stable and medically optimized for discharge on Augmentin for 4 additional days and Doxycycline for 2 additional days. 2. Acute RA Flare with bilateral Shoulder and hands discomfort and tenderness Bilateral glenohumeral effusions on imaging ESR 54/CRP 27.5 Rheumatology consulted - recommend increase in daily Prednisone dose from 5mg to 10mg with out-patient follow up with patient's own Hims Manager. 3. Troponin Egression, elevated BNP, bilateral effusions, Cardiomegaly No Chest Pain/palpitations TnI max 0.1, BNP 3786 Echo - Moderate MS, mild to mod MR. Normal EF. Cardiology evaluated - not ACS - possible demand - no further work-up required - will follow as out-patient. 4. HTN - Continue Atenolol. 5. Hypoalbuminemia, likely sec to chronic disease. Protein supplementation advised. 6. Chronic compression fracture - currently pain free 7. Bilateral Non-obstructing Nephrolithiasis - Stable. 8. Thyroid nodule -2cm nodule incidental finding. For US as out-patient. 9. R Adnexal Cyst, 3.7cm - recommend repeat imaging in 6 months. 10. Microcytic Anemia - Iron deficiency - Iron 8, Iron Sat 3% - no evidence of acute blood loss - no melena/hematochezia. Will give IV Venofer and start on Ferrous Sulfate. Advised to follow with Gastroenterology for Iron deficiency Anemia work-up. 11. Chronic Diastolic CHF with elevated BNP - Echo with Mild to moderate pulmonary hypertension, Moderate to severe MAC with functional MS and moderate MR. Moderate to severe TR. Normal AV. M to moderate pulmonary HTN. PASP = 40-50 mmHg. Evaluated by Cardiology. For Lasix prn. Patient advised to weigh daily and to take 1 dose of Lasix 40 if weight increases by greeater than 3 lbs in 5- 7 days with call to her PCP/Respiratory Equipment Assistant. Medically optimized for discharge on Abx therapy with PCP, Cardiology and Gastroenterology follow up.
--- NOTE | 2018-05-30 14:38 | DS ---
Physical Exam: SUBJECTIVE: Patient seen and examined at bedside. no acute events overnight. pain in shoulders and hand joints much improved. denies fever, chills ,cp, sob, n/v/d, urinary sx. OBJECTIVE: Vital Signs Period Temp Pulse Resp BP Sys/John Pulse Ox Last 24 Hr 97.6 F-98.4 F 77-83 16-20 110-135/55-74 95-96 PHYSICAL EXAM GENERAL: AOX3, NAD HEAD: NCAT. EYES: Pupils equal, round and reactive to light, extraocular movements intact, EARS, NOSE, THROAT: nares patent, oropharynx clear without exudates. Moist mucous membranes. NECK: Normal range of motion, supple LUNGS: crackles b/l HEART: Regular rate and rhythm, normal S1 and S2, no m/r/g Abdomen : Soft, ND. NT , normal BS , no suprapubic tenderness UPPER EXTREMITIES: 2+ pulses, warm, well-perfused. No cyanosis. improved rom , B /L shoulder swelling , right hand finger joint swelling LOWER EXTREMITIES: 2+ pulses, warm, well-perfused. No calf tenderness. strength 5/5 lower ext extension and flexion NEUROLOGICAL: Cranial nerves II-XII intact. Normal speech. PSYCHIATRIC: Cooperative. SKIN: Warm, dry, normal turgor LABS Laboratory Results - last 24 hr 05/28/18 05/29/18 05/30/18 22:58 06:00 06:00 WBC 13.8 H RBC 3.03 L Hgb 7.5 L Hct 23.3 L MCV 77.1 L MCH 24.8 L MCHC 32.2 RDW 20.4 H Plt Count 212 MPV 8.3 Absolute Neuts (auto) 12.3 H Neutrophils % 89.3 H Lymphocytes % 4.4 L D Monocytes % 5.8 Eosinophils % 0.2 Basophils % 0.3 Nucleated RBC % 0 Sodium Potassium Chloride Carbon Dioxide Anion Gap BUN Creatinine Creat Clearance w eGFR Random Glucose Calcium Iron 8 L TIBC 247 L Iron Saturation 3 L Ferritin HIV Genotype Non reactive 05/30/18 06:00 WBC RBC Hgb Hct MCV MCH MCHC RDW Plt Count MPV Absolute Neuts (auto) Neutrophils % Lymphocytes % Monocytes % Eosinophils % Basophils % Nucleated RBC % Sodium 141 Potassium 3.9 Chloride 112 H Carbon Dioxide 23 Anion Gap 6 L BUN 23 H Creatinine 0.9 Creat Clearance w eGFR > 60 Random Glucose 88 Calcium 7.8 L Iron TIBC Iron Saturation Ferritin 143.1 HIV Genotype 2841-1714 CT/ABDOMEN & PELVIS CT W/O CONTR [id number] CT/CHEST CT WITHOUT CONTRAST CHEST CT without contrast Clinical information: sepsis Multiplanar imaging of the chest was performed. As requested no intravenous contrast was administered. No prior chest CT study is available at this facility for direct comparison. Small bilateral pleural effusions are noted layering posteriorly with associated bibasilar compressive atelectasis, left more than right. A superimposed left basilar infiltrate would be difficult to exclude on the basis of CT only. A small somewhat subtle patchy infiltrate is noted within the anterior segment of the left upper lobe. Left atrial dilatation is seen. No pericardial effusion is noted. The main pulmonary artery is dilated with a 3.4 cm diameter consistent with increased pulmonary arterial pressure. The trachea and central bronchi demonstrate no discrete abnormality. There is no aortic aneurysm. No obvious lymphadenopathy is identified on noncontrast imaging. A large hiatal hernia is seen. IMPRESSION: A small patchy left upper lobe infiltrate is seen. Small bilateral pleural effusions are noted with associated bibasilar compressive atelectasis. A superimposed left lower lobe infiltrate would be difficult to exclude on the basis of imaging only. Correlate clinically. Cardiomegaly. Dilatation of the main pulmonary artery is seen consistent with increased pulmonary arterial pressure. Large hiatal hernia. A 2 cm right thyroid lobe nodule is seen. Correlate with sonography. There is partial imaging of at least moderate bilateral glenohumeral joint effusions. Small calcified loose osteochondral bodies are noted bilaterally. Multilevel thoracic vertebral body compression fractures which appear to be chronic. ABDOMEN AND PELVIS CT without contrast Clinical information: sepsis Multiplanar imaging was performed. As requested no intravenous or enteric contrast was administered. No evidence of pneumoperitoneum, free intraperitoneal fluid or bowel obstruction. In comparison to a prior CT exam of 08/03/2015 interval passage/extraction is noted of a small distal left ureteral calculus. A stable 0.2 cm left renal nonobstructing calculus is visualized. A 0.2 cm right renal lower pole nonobstructing calculus is seen which may have been present on the previous exam. Interval development of a small amount of perirenal fluid accumulation is noted bilaterally. There is no hydronephrosis. Incidental note is again made of a left renal cortical cyst. A stable 3.7 cm left adnexal cystic structure is noted. There is at least moderate diffuse pancreatic atrophy. The liver, spleen, adrenal glands and gallbladder demonstrate no obvious noncontrast pathology. There is no aortic aneurysm. No obvious lymphadenopathy is seen. The partially visualized appendix appears unremarkable. Colonic diverticulosis is noted without evidence of acute diverticulitis. No gross noncontrast small bowel abnormality is noted. IMPRESSION: Small bilateral nonobstructing renal calculi. In comparison to a prior CT study of 08/03/2015 interval development of a small amount of nonspecific perirenal fluid is noted. Correlate with follow-up CT. Stable 3.7 cm left adnexal cystic structure. Correlate with 6 month follow-up sonography or CT/MRI to document continued stability. Large hiatal hernia. Mild chronic stable L4 vertebral body compression fracture. ECHO Interpretation Summary The study was technically difficult with many images being suboptimal in quality. The left ventricular size, thickness and function are normal The left ventricle is not well visualized. The left ventricular ejection fraction is normal. Regional wall motion abnormalities cannot be excluded due to limited visualization. There is moderate tricuspid regurgitation. The left atrium is severely dilated. The right atrium is moderately dilated. E/A reversal consistent with but not diagnostic of poor LV compliance There is moderate mitral stenosis. There is moderate mitral valve thickening. There is mild to moderate mitral regurgitation. There is moderate to severe mitral annular calcification. Functional mitral valve stenosis secondary to MAC Right ventricular systolic pressure is elevated at 40-50mmHg. HOSPITAL COURSE: Date of Admission:05/28/18 Date of Discharge: 05/30/18 72 yo F PMH of HTN, Depression, OA, RA, Lupus , diastolic CHF, asthma , iron deficiency anemia, recent hospitalization for Pneumonia and UTI at [facility], p/w family for pain and generalized weakness. Admitted for sepsis 2/2 HCAP c/b RA flare up. wbc 22.4 , rectal temp 102 in ED, BP wnl, lactic nl. ct chest with upper and lower lobe infiltrate, small bilateral pleural effusion, dilatation pulmonary artery and hiatal hernia. vanco given IN ED and pt tx w/ zosyn and doxycycline. HIV, RPR, flu, bcx, ucx, urine legionella AG neg. Currently Hemodynamically Stable and medically optimized for discharge on Augmentin for 4 additional days and Doxycycline for 2 additional days. #Acute RA Flare with bilateral Shoulder and hands discomfort and tenderness; Bilateral glenohumeral effusions on imaging, ESR 54/CRP 27.5 Rheumatology consulted - recommend increase in daily Prednisone dose from 5mg to 10mg with out-patient follow up with patient's own Supervisor Brine, Dr. Miranda [phone]. #Troponin Egression - No Chest Pain/palpitations. ECG revealed sinus rhythm with prolong QT, inferior Q waves and normal ST-T TnI max 0.1 downtrending to 0.05 s/p ASA 325 Echo - Moderate MS, mild to mod MR. Normal EF. Cardiology evaluated - not ACS - possible demand - no further work-up required - will follow as out-patient with patient's own product development carpenter Dr. Davidson #Chronic Diastolic CHF w/ elevated BNP 3785 - Echo with Mild to moderate pulmonary hypertension, Moderate to severe MAC with functional MS and moderate MR. Moderate to severe TR. Normal AV. M to moderate pulmonary HTN. PASP = 40-50 mmHg. Evaluated by Cardiology. For Lasix prn. Patient advised to weigh daily and to take 1 dose of Lasix 40 if weight increases by greater than 3 lbs in 5-7 days with call to her PCP or [employer] Dr. Davidson [phone] #Bilateral Non-obstructing Nephrolithiasis - Stable. #Thyroid nodule -2cm nodule incidental finding. For US as out-patient. TSH nl # L Adnexal Cyst, 3.7cm - recommend repeat imaging in 6 months. #Microcytic Anemia (7.5)- Iron deficiency - Iron 8, Iron Sat 3% - no evidence of acute blood loss - no melena/hematochezia. pt started on Ferrous Sulfate. Advised to follow with Gastroenterology for Iron deficiency Anemia work-up/ colonoscopy daughter, Pati Ventura is health care proxy [phone] pt is stable and medically optimized for discharge on Abx, steroid, and iron therapy with PCP, Cardiology and Gastroenterology follow up. Minutes to complete discharge: 38 Discharge Summary Reason For Visit: SEPSIS Current Active Problems Fever (Acute) Rheumatoid arthritis, seropositive, multiple sites (Acute) Condition: Stable - Instructions Diet, Activity, Other Instructions: you came in because your were having pain and weakness due to a pneumonia and a flare up of your rheumatoid arthritis. we gave you pain medicines, steroids and antibiotics which helped your symptoms. while you were here we noticed your iron levels were very low so we gave you iron pills. we also noticed that you had some fluid in your lungs so we gave you your lasix water pill. Please continue taking the following antibiotics for your pneumonia: Please take doxycycline 100mg twice a day for 2 more days. while taking doxycycline please do not take together with iron pills, as the iron will decrease the absorption of the antibiotic. please take iron pills first and wait a minimum of 2 hours before taking doxycycline. Please take Augmentin 500-125mg twice a day for 4 more days Other New meds: Please continue taking prednisone 10mg daily for your flare up of your rheumatoid arthritis and please follow up with your cloud subject matter expert Dr. Miranda or our cloud subject matter expert Dr. Hatfield within 1 week. Please continue taking Feosol/iron pills 325mg twice a day. Please resume your other home meds Please continue taking lasix only on an as needed basis if you notice leg swelling, shortness of breath when laying flat or increase of weight of 2-3 lbs in less than a week. If you notice any of these please take your lasix 40mg and call your primary care physician or product development carpenter. please weigh yourself daily Your blood levels and iron levels are very low, there could be many reasons for this some of which may include a small bleed in your intestines or a sign of malignancy. Please follow up with Accounts Receivable Bookkeeper Dr. Peoples for a check up and possible colonoscopy. Of note your CT scan showed a small nodule/mass on your thyroid and a small cyst on your left ovary. There could be many reasons for this some of which may include malignancy. Please have your primary care physician repeat imaging in 6 months to re-evaluate these findings Please follow up with your primary care physician within 1 week Please follow up with your cloud subject matter expert Dr. Miranda or our cloud subject matter expert Dr. Hatfield within 1 week. Please follow up with your product development carpenter Dr Davidson or our product development carpenter Dr. Osullivan within 1 week Please follow up with Accounts Receivable Bookkeeper Dr. Peoples within 1 week if you experience any fevers, chills, shortness of breath, chest pain, nausea, vomit, diarrhea, blood in your stool, worsening joint pain/flare up of your rheumatoid arthritis please call 911 or go the ER. Referrals: Endy Peoples, [Staff Physician] - 1 Week Teo Hatfield MD [Staff Physician] - 1 Week Migue Osullivan MD [Staff Physician] - 1 Week Disposition: HOME - Home Medications Comprehensive Discharge Medication List: Ambulatory Orders Clonazepam 2 mg PO DAILY 01/11/12 Amlodipine Besylate [Norvasc -] 5 mg PO DAILY 05/28/18 Aripiprazole 10 mg PO DAILY 05/28/18 Atenolol [Tenormin -] 50 mg PO DAILY 05/28/18 Dextroamphetamine/Amphetamine [Adderall Xr 20 mg Capsule] 20 mg PO DAILY Furosemide 40 mg PO PRN 05/29/18 Hydroxychloroquine Sulfate 200 mg PO BID 05/29/18 Amox-Tr/K Cl [Augmentin - 500Mg Tablet] 1 tab PO BID 4 Days #8 tablet 05/30/18 Doxycycline Hyclate [Vibramycin] 100 mg PO BID 2 Days #4 capsule 05/30/18 Ferrous Sulfate [Feosol] 325 mg PO BID 30 Days #60 tab 05/30/18 Prednisone 10 mg PO DAILY #30 tablet 05/30/18 This patient is new to me today: Yes Date on this admission: 05/30/18 Emergency Visit: Yes ED Registration Date: 05/28/18 Care time: The patient presented to the Emergency Department on the above date and was hospitalized for further evaluation of their emergent condition. Critical Care patient: No - Discharge Referral Referred to [facility] No
[2018-05-30 15:38] VITALS: BP 137/70; PULSE 82; TEMP 98.4
== END 2018-05-30 16:47 | disposition home or self-care (01) | DRG 871 ==
LOC: JER 14:22 → JERBED 19:41 → J8W 05-29 01:50 → J4W 05-29 08:39
PROVIDERS: ADMIT Internal Medicine
DX: A41.9 Sepsis, unspecified organism (principal); J18.1 Lobar pneumonia, unspecified organism; I24.8 Other forms of acute ischemic heart disease; M48.56XA Collapsed vertebra, not elsewhere classified, lumbar region, initial encounter for fracture; I50.32 Chronic diastolic (congestive) heart failure; J98.11 Atelectasis; F32.9 Major depressive disorder, single episode, unspecified; E88.09 Other disorders of plasma-protein metabolism, not elsewhere classified; E04.1 Nontoxic single thyroid nodule; N83.8 Other noninflammatory disorders of ovary, fallopian tube and broad ligament; I11.0 Hypertensive heart disease with heart failure; M32.9 Systemic lupus erythematosus, unspecified; J45.909 Unspecified asthma, uncomplicated; I27.20 Pulmonary hypertension, unspecified; D50.9 Iron deficiency anemia, unspecified; N83.202 Unspecified ovarian cyst, left side; N20.0 Calculus of kidney; Y95 Nosocomial condition; M05.79 Rheumatoid arthritis with rheumatoid factor of multiple sites without organ or systems involvement
CPT/HCPCS: 36415; 71045-TC-FY; 71250-TC; 74176-TC; 80048; 80053; 81003; 81015; 82607; 82728; 82746; 82803; 83540; 83550; 83605; 83880; 84443; 84484; 85025; 85610; 85651; 85730; 86140; 86593; 87040; 87086; 87389; 87633; 87804; 87899; 93005; 93010; 93306-TC; 97116-GP; 97161-GP; 99285-25; J0131; J1644; J1756; J7030

== ENCOUNTER 2020-03-27 16:44 | Inpatient (IN) | payer OTHER, MEDICARE ==
[2020-03-27 17:58] LABS: BASO % 3.7 % (0-2.0); EOS % 3.7 % (0-4.5); HEMATOCRIT 32.9 % (32.4-45.2); HEMOGLOBIN 10.5 GM/dl (10.7-15.3); LYMPH % 10.1 % (8-40); MCH 25.8 pg (25.7-33.7); MCHC 31.8 g/dl (32.0-36.0); MEAN PLT VOLUME 7.2 fl (7.5-11.1); MONO % 7.1 % (3.8-10.2); NEUT % 75.4 % (42.8-82.8); PLATELET COUNT 378 K/MM3 (134-434); RBC 4.06 M/mm3 (3.60-5.2); RDW 15.4 % (11.6-15.6); WHITE BLOOD COUNT 8.2 K/mm3 (4.0-10.8)
[2020-03-27 18:01] LABS: BILIRUBIN,TOTAL 0.6 mg/dl (0.2-1); CALCIUM 8.6 mg/dl (8.5-10); CREATININE 0.9 mg/dl (0.55-1.3); POTASSIUM 3.6 mmol/L (3.5-5.1)
[2020-03-27 18:39] LABS: CALCIUM OXALATE CRYSTALS FEW /hpf (NONE SEEN); EPITHELIAL CELLS MODERATE /hpf
[2020-03-27] MEDS ORDERED: CEFTRIAXONE 1 GM in DEXTROSE 5%-WATER - 100 ML IVPB ONE (19:04)
[2020-03-27] MEDS ORDERED: cefTRIAXone SODIUM 1 GM VIAL ONE (19:32)
[2020-03-28 00:06] VITALS: BMI 21.2
[2020-03-28] MEDS ORDERED: DOCUSATE SODIUM 100 MG CAPSULE (FP) PO PRN (10:10)
[2020-03-28] MEDS: ARIPiprazole 10 MG TABLET PO SCH (10:29)
[2020-03-28] MEDS: CARVEDILOL 6.25 MG TABLET (FP) PO SCH ×2 (11:00→21:18)
[2020-03-28] MEDS: APIXABAN 5 MG TABLET PO SCH ×2 (11:04→21:18)
[2020-03-28] MEDS: clonazePAM 0.5 MG TABLET PO SCH (11:04)
[2020-03-28] MEDS: predniSONE 5 MG TABLET (UD) PO SCH (11:04)
[2020-03-28] MEDS: HYDROXYCHLOROQUINE SO4 200 MG TABLET (FP) PO SCH ×2 (11:05→21:18)
[2020-03-28] MEDS ORDERED: POTASSIUM CHLORIDE TABS 20 MEQ TABLET.ER (FP) PO ONE (15:36)
[2020-03-28] MEDS ORDERED: SODIUM CHLORIDE 1,000 ML IV SCH (15:45)
[2020-03-28] MEDS ORDERED: DEXTROSE 5%-WATER - 50 ML IVPB ONE (20:11)
[2020-03-28] MEDS ORDERED: cefTRIAXone SODIUM 1 GM VIAL ONE (20:11)
[2020-03-28] MEDS: CEFTRIAXONE 1 GM in DEXTROSE 5%-WATER - 50 ML IVPB SCH (20:19)
[2020-03-29 08:21] LABS: HEMATOCRIT 30.6 % (32.4-45.2); HEMOGLOBIN 9.5 GM/dl (10.7-15.3); MCH 25.4 pg (25.7-33.7); MCHC 31.2 g/dl (32.0-36.0); MEAN CELL VOLUME 81.6 fl (80-96); MEAN PLT VOLUME 6.9 fl (7.5-11.1); PLATELET COUNT 397 K/MM3 (134-434); RBC 3.75 M/mm3 (3.60-5.2); RDW 15.4 % (11.6-15.6); WHITE BLOOD COUNT 6.4 K/mm3 (4.0-10.8)
[2020-03-29 08:45] LABS: ALBUMIN 2.7 g/dl (3.4-5.0); BILIRUBIN,TOTAL 0.5 mg/dl (0.2-1); CALCIUM 8.6 mg/dl (8.5-10); CREATININE 0.6 mg/dl (0.55-1.3); MAGNESIUM 1.7 mg/dL (1.8-2.4); POTASSIUM 3.6 mmol/L (3.5-5.1); TOT PROT 5.6 g/dl (6.4-8.2)
[2020-03-29] MEDS ORDERED: MAGNESIUM SULF 50% (8.12 MEQ/2 ML-1 GM VIAL) IVPB ONE (09:33)
[2020-03-29] MEDS ORDERED: PATIENT'S OWN MEDICATION (NON-FORMULARY) (Dextroamphetamine/Amphetamine [Adderall Xr 20 Mg PO SCH ×2 (10:00)
[2020-03-29] MEDS: ARIPiprazole 10 MG TABLET PO SCH (10:15)
[2020-03-29] MEDS: clonazePAM 0.5 MG TABLET PO SCH (10:26)
[2020-03-29] MEDS: HYDROXYCHLOROQUINE SO4 200 MG TABLET (FP) PO SCH ×2 (10:26→21:46)
[2020-03-29] MEDS: APIXABAN 5 MG TABLET PO SCH ×2 (10:26→21:46)
[2020-03-29] MEDS: CARVEDILOL 6.25 MG TABLET (FP) PO SCH ×2 (10:27→21:46)
[2020-03-29] MEDS: predniSONE 5 MG TABLET (UD) PO SCH (10:27)
[2020-03-29] MEDS ORDERED: MAGNESIUM SULFATE IN WATER 2 GM/50 ML IVPB IVPB ONE (11:00)
[2020-03-29] MEDS ORDERED: DEXTROSE 5%-WATER - 50 ML IVPB ONE (21:44)
[2020-03-29] MEDS ORDERED: cefTRIAXone SODIUM 1 GM VIAL ONE (21:44)
[2020-03-29] MEDS: CEFTRIAXONE 1 GM in DEXTROSE 5%-WATER - 50 ML IVPB SCH (21:46)
[2020-03-30 07:46] LABS: BASO % 0.7 % (0-2.0); EOS % 4.8 % (0-4.5); HEMATOCRIT 31.4 % (32.4-45.2); HEMOGLOBIN 9.9 GM/dl (10.7-15.3); LYMPH % 11.3 % (8-40); MCH 25.8 pg (25.7-33.7); MCHC 31.7 g/dl (32.0-36.0); MEAN CELL VOLUME 81.5 fl (80-96); MONO % 5.7 % (3.8-10.2); NEUT % 77.5 % (42.8-82.8); PLATELET COUNT 432 K/MM3 (134-434); RBC 3.85 M/mm3 (3.60-5.2); RDW 15.2 % (11.6-15.6)
[2020-03-30 07:59] LABS: ALBUMIN 2.9 g/dl (3.4-5.0); BILIRUBIN,TOTAL 0.6 mg/dl (0.2-1); CALCIUM 8.4 mg/dl (8.5-10); CREATININE 0.7 mg/dl (0.55-1.3); MAGNESIUM 1.9 mg/dL (1.8-2.4); POTASSIUM 3.6 mmol/L (3.5-5.1); TOT PROT 5.7 g/dl (6.4-8.2)
[2020-03-30] MEDS: APIXABAN 5 MG TABLET PO SCH ×2 (10:21→21:28)
[2020-03-30] MEDS: HYDROXYCHLOROQUINE SO4 200 MG TABLET (FP) PO SCH ×2 (10:22→21:28)
[2020-03-30] MEDS: CARVEDILOL 6.25 MG TABLET (FP) PO SCH ×2 (10:22→21:28)
[2020-03-30] MEDS: clonazePAM 0.5 MG TABLET PO SCH (10:22)
[2020-03-30] MEDS: predniSONE 5 MG TABLET (UD) PO SCH (10:22)
[2020-03-30] MEDS: amLODIPine BESYLATE 5 MG TABLET (FP) PO SCH (10:22)
[2020-03-30] MEDS: ARIPiprazole 10 MG TABLET PO SCH (10:23)
[2020-03-30] MEDS ORDERED: cefTRIAXone SODIUM 1 GM VIAL ONE (20:07)
[2020-03-30] MEDS ORDERED: DEXTROSE 5%-WATER - 50 ML IVPB ONE (20:07)
[2020-03-30] MEDS: CEFTRIAXONE 1 GM in DEXTROSE 5%-WATER - 50 ML IVPB SCH (21:28)
[2020-03-31 07:59] LABS: BASO % 0.5 % (0-2.0); EOS % 4.7 % (0-4.5); HEMATOCRIT 32.3 % (32.4-45.2); LYMPH % 11.8 % (8-40); MCH 25.2 pg (25.7-33.7); MCHC 30.9 g/dl (32.0-36.0); MEAN CELL VOLUME 81.6 fl (80-96); MONO % 5.8 % (3.8-10.2); NEUT % 77.2 % (42.8-82.8); PLATELET COUNT 393 K/MM3 (134-434); RBC 3.96 M/mm3 (3.60-5.2); RDW 15.5 % (11.6-15.6); WHITE BLOOD COUNT 7.1 K/mm3 (4.0-10.8)
[2020-03-31 08:10] LABS: ALBUMIN 2.8 g/dl (3.4-5.0); BILIRUBIN,TOTAL 0.6 mg/dl (0.2-1); CALCIUM 8.5 mg/dl (8.5-10); CREATININE 0.7 mg/dl (0.55-1.3); MAGNESIUM 1.7 mg/dL (1.8-2.4); POTASSIUM 3.6 mmol/L (3.5-5.1); TOT PROT 5.6 g/dl (6.4-8.2)
[2020-03-31] MEDS ORDERED: MAGNESIUM SULF 50% (8.12 MEQ/2 ML-1 GM VIAL) IVPB ONE (08:30)
[2020-03-31] MEDS ORDERED: MAGNESIUM SULFATE IN WATER 2 GM/50 ML IVPB IVPB ONE (08:45)
[2020-03-31] MEDS: ARIPiprazole 10 MG TABLET PO SCH (09:26)
[2020-03-31] MEDS: CARVEDILOL 6.25 MG TABLET (FP) PO SCH ×2 (09:26→22:07)
[2020-03-31] MEDS: HYDROXYCHLOROQUINE SO4 200 MG TABLET (FP) PO SCH (09:26)
[2020-03-31] MEDS: amLODIPine BESYLATE 5 MG TABLET (FP) PO SCH (09:26)
[2020-03-31] MEDS: predniSONE 5 MG TABLET (UD) PO SCH (09:26)
[2020-03-31] MEDS: APIXABAN 5 MG TABLET PO SCH ×2 (09:26→22:07)
[2020-03-31] MEDS ORDERED: PT OWN MED DRAWER 7, Y5N ONE (21:17)
[2020-03-31] MEDS ORDERED: cefTRIAXone SODIUM 1 GM VIAL ONE (21:17)
[2020-03-31] MEDS ORDERED: DEXTROSE 5%-WATER - 50 ML IVPB ONE (21:18)
[2020-03-31] MEDS ORDERED: clonazePAM 0.5 MG TABLET PO SCH (22:00)
[2020-03-31] MEDS: CEFTRIAXONE 1 GM in DEXTROSE 5%-WATER - 50 ML IVPB SCH (22:06)
[2020-03-31] MEDS: HYDROXYCHLOROQUINE 200 MG/8 ML ORAL SUSPENSION PO SCH (22:10)
[2020-04-01] MEDS: ARIPiprazole 5 MG TABLET PO SCH (10:04)
[2020-04-01] MEDS: amLODIPine BESYLATE 5 MG TABLET (FP) PO SCH (10:05)
[2020-04-01] MEDS: APIXABAN 5 MG TABLET PO SCH ×2 (10:05→21:43)
[2020-04-01] MEDS: predniSONE 5 MG TABLET (UD) PO SCH (10:05)
[2020-04-01] MEDS: CARVEDILOL 6.25 MG TABLET (FP) PO SCH ×2 (10:05→21:43)
[2020-04-01] MEDS: HYDROXYCHLOROQUINE 200 MG/8 ML ORAL SUSPENSION PO SCH ×2 (10:26→21:44)
[2020-04-01] MEDS: PHENELZINE SULFATE 15 MG PO SCH ×4 (10:26→21:44)
[2020-04-01] MEDS ORDERED: PT OWN MED DRAWER 7, Y5N ONE ×5 (11:23→21:37)
[2020-04-01] MEDS ORDERED: ACETAMINOPHEN 325 MG TABLET (FP) PO PRN (13:19)
[2020-04-01] MEDS ORDERED: cefTRIAXone SODIUM 1 GM VIAL ONE (21:37)
[2020-04-01] MEDS ORDERED: DEXTROSE 5%-WATER - 50 ML IVPB ONE (21:37)
[2020-04-01] MEDS: CEFTRIAXONE 1 GM in DEXTROSE 5%-WATER - 50 ML IVPB SCH (21:43)
[2020-04-02 06:31] VITALS: BP 168/71; PULSE 77; TEMP 98.4
[2020-04-02] MEDS ORDERED: cefTRIAXone SODIUM 1 GM VIAL ONE (06:53)
[2020-04-02] MEDS ORDERED: PT OWN MED DRAWER 7, Y5N ONE ×3 (09:23→14:42)
[2020-04-02] MEDS: ARIPiprazole 5 MG TABLET PO SCH (09:24)
[2020-04-02] MEDS: predniSONE 5 MG TABLET (UD) PO SCH (09:24)
[2020-04-02] MEDS: CARVEDILOL 6.25 MG TABLET (FP) PO SCH (09:24)
[2020-04-02] MEDS: amLODIPine BESYLATE 5 MG TABLET (FP) PO SCH (09:24)
[2020-04-02] MEDS: APIXABAN 5 MG TABLET PO SCH (09:24)
[2020-04-02] MEDS: PHENELZINE SULFATE 15 MG PO SCH ×2 (09:25→14:48)
[2020-04-02] MEDS ORDERED: HYDROXYCHLOROQUINE SO4 200 MG TABLET (FP) PO SCH (10:00)
== END 2020-04-02 15:39 | disposition home or self-care (01) | DRG 689 ==
LOC: FER 16:44 → FM/S 19:47
PROVIDERS: ADMIT Internal Medicine; ATTEND Nurse Practitioner Acute Care
DX: N39.0 Urinary tract infection, site not specified (principal); G93.41 Metabolic encephalopathy; R44.0 Auditory hallucinations; Z16.12 Extended spectrum beta lactamase (ESBL) resistance; I10 Essential (primary) hypertension; B96.20 Unspecified Escherichia coli [E. coli] as the cause of diseases classified elsewhere; R44.1 Visual hallucinations; F99 Mental disorder, not otherwise specified; M06.9 Rheumatoid arthritis, unspecified; L93.0 Discoid lupus erythematosus; E78.5 Hyperlipidemia, unspecified; F32.9 Major depressive disorder, single episode, unspecified; E83.42 Hypomagnesemia; R41.82 Altered mental status, unspecified
CPT/HCPCS: 36415; 70450-TC; 71045-TC-FY; 73562-TC-LT-FY; 73562-TC-RT-FY; 80053; 81003; 81015; 83735; 85025; 85027; 87040; 87086; 87186; 93005; 97116-GP; 97162-GP; 99285-25; C9803; U0003

== ENCOUNTER 2020-06-07 17:27 | Inpatient (IN) | payer OTHER, MEDICARE ==
[2020-06-07] MEDS ORDERED: ACETAMINOPHEN 325 MG TABLET (FP) PO ONE (19:33)
[2020-06-07 19:40] LABS: BILIRUBIN,TOTAL 0.8 mg/dl (0.2-1); CALCIUM 8.4 mg/dl (8.5-10); MAGNESIUM 1.7 mg/dL (1.8-2.4); POTASSIUM 3.5 mmol/L (3.5-5.1); TOT PROT 5.9 g/dl (6.4-8.2)
[2020-06-07 19:51] LABS: HEMATOCRIT 34.4 % (32.4-45.2); HEMOGLOBIN 11.1 GM/dl (10.7-15.3); MCH 26.1 pg (25.7-33.7); MCHC 32.1 g/dl (32.0-36.0); MEAN CELL VOLUME 81.4 fl (80-96); MEAN PLT VOLUME 7.3 fl (7.5-11.1); PLATELET COUNT 438 K/MM3 (134-434); RBC 4.23 M/mm3 (3.60-5.2); RDW 14.3 % (11.6-15.6); WHITE BLOOD COUNT 10.9 K/mm3 (4.0-10.8)
[2020-06-07 20:22] LABS: ACTIVATED PTT 26.9 SECONDS (25.2-36.5)
[2020-06-07 20:26] LABS: INR 1.49 (0.82-1.09); PROTHROMBIN TIME (PATIENT) 16.3 SEC (10.2-13.0)
[2020-06-07] MEDS ORDERED: ACETAMINOPHEN 500 MG TABLET (FP) ONE (20:43)
[2020-06-07] MEDS ORDERED: SODIUM CHLORIDE 0.9% 500 ML INFUS.BAG IV ONE (20:44)
[2020-06-07 21:29] LABS: EPITHELIAL CELLS MODERATE /hpf
[2020-06-07 21:30] LABS: URINE MUCUS 1+
[2020-06-07 21:36] LABS: PLATELET ESTIMATE SLT INCREASE
[2020-06-07] MEDS ORDERED: CEFTRIAXONE 1,000 MG in DEXTROSE 5%-WATER - 50 ML IVPB ONE (23:33)
[2020-06-07] MEDS ORDERED: cefTRIAXone SODIUM 1 GM VIAL ONE (23:46)
[2020-06-08] MEDS ORDERED: SODIUM CHLORIDE 0.9% 1000 ML INFUS.BAG IV ONE (00:04)
[2020-06-08] MEDS ORDERED: DOCUSATE SODIUM 100 MG CAPSULE (FP) PO PRN (02:46)
[2020-06-08 05:35] VITALS: BMI 22.8
[2020-06-08] MEDS: INSULIN SLIDING SCALE (NOVOLOG) 1 VIAL SQ SCH ×4 (07:43→21:15)
[2020-06-08] MEDS: predniSONE 10 MG TABLET (UD) PO SCH (10:15)
[2020-06-08] MEDS: APIXABAN 5 MG TABLET PO SCH ×2 (10:16→21:14)
[2020-06-08] MEDS: HYDROXYCHLOROQUINE SO4 200 MG TABLET (FP) PO SCH ×2 (10:16→21:15)
[2020-06-08 10:19] LABS: BASO % 0.4 % (0-2.0); HEMATOCRIT 29.3 % (32.4-45.2); HEMOGLOBIN 9.3 GM/dl (10.7-15.3); LYMPH % 7.7 % (8-40); MCH 25.9 pg (25.7-33.7); MCHC 31.8 g/dl (32.0-36.0); MEAN CELL VOLUME 81.6 fl (80-96); MEAN PLT VOLUME 7.4 fl (7.5-11.1); MONO % 4.3 % (3.8-10.2); NEUT % 83.6 % (42.8-82.8); PLATELET COUNT 356 K/MM3 (134-434); RBC 3.59 M/mm3 (3.60-5.2); RDW 14.9 % (11.6-15.6); WHITE BLOOD COUNT 8.1 K/mm3 (4.0-10.8)
[2020-06-08 10:22] LABS: ALBUMIN 2.5 g/dl (3.4-5.0); BILIRUBIN,TOTAL 0.7 mg/dl (0.2-1); CALCIUM 8.1 mg/dl (8.5-10); CREATININE 0.7 mg/dl (0.55-1.3); MAGNESIUM 1.6 mg/dL (1.8-2.4); POTASSIUM 3.6 mmol/L (3.5-5.1); TOT PROT 5.1 g/dl (6.4-8.2)
[2020-06-08] MEDS ORDERED: PATIENT'S OWN MEDICATION (NON-FORMULARY) (Dextroamphetamine/Amphetamine [Adderall Xr 20 Mg PO SCH (10:45)
[2020-06-08] MEDS: FERROUS SO4 325 MG TABLET (FP) PO SCH (12:43)
[2020-06-08] MEDS: CARVEDILOL 6.25 MG TABLET (FP) PO SCH ×2 (12:43→21:14)
[2020-06-08] MEDS: amLODIPine BESYLATE 5 MG TABLET (FP) PO SCH (12:43)
[2020-06-08] MEDS ORDERED: PHENELZINE SULFATE 15 MG PO SCH (14:00)
[2020-06-08] MEDS ORDERED: ACETAMINOPHEN 325 MG TABLET (FP) PO ONE (21:06)
[2020-06-08] MEDS ORDERED: SODIUM CHLORIDE 50 ML IVPB ONE (21:08)
[2020-06-08] MEDS ORDERED: cefTRIAXone SODIUM 1 GM VIAL ONE (21:08)
[2020-06-08] MEDS: CEFTRIAXONE 1 GM in SODIUM CHLORIDE 50 ML IVPB SCH (21:15)
[2020-06-09] MEDS: INSULIN SLIDING SCALE (NOVOLOG) 1 VIAL SQ SCH ×4 (06:54→22:05)
[2020-06-09] MEDS: CARVEDILOL 6.25 MG TABLET (FP) PO SCH ×2 (09:33→22:05)
[2020-06-09] MEDS: APIXABAN 5 MG TABLET PO SCH ×2 (09:34→22:05)
[2020-06-09] MEDS: predniSONE 10 MG TABLET (UD) PO SCH (09:34)
[2020-06-09] MEDS: FERROUS SO4 325 MG TABLET (FP) PO SCH (09:34)
[2020-06-09] MEDS: amLODIPine BESYLATE 5 MG TABLET (FP) PO SCH (09:35)
[2020-06-09] MEDS: HYDROXYCHLOROQUINE SO4 200 MG TABLET (FP) PO SCH ×2 (09:35→22:05)
[2020-06-09] MEDS ORDERED: LEFLUNOMIDE 10 MG TABLET PO SCH (10:00)
[2020-06-09] MEDS ORDERED: cefTRIAXone SODIUM 1 GM VIAL ONE (21:37)
[2020-06-09] MEDS ORDERED: SODIUM CHLORIDE 50 ML IVPB ONE (21:38)
[2020-06-09] MEDS: CEFTRIAXONE 1 GM in SODIUM CHLORIDE 50 ML IVPB SCH (22:04)
[2020-06-10] MEDS: INSULIN SLIDING SCALE (NOVOLOG) 1 VIAL SQ SCH ×3 (06:32→16:41)
[2020-06-10] MEDS ORDERED: ACETAMINOPHEN 325 MG TABLET (FP) PO PRN (08:08)
[2020-06-10] MEDS: HYDROXYCHLOROQUINE SO4 200 MG TABLET (FP) PO SCH (09:23)
[2020-06-10] MEDS: FERROUS SO4 325 MG TABLET (FP) PO SCH (09:23)
[2020-06-10] MEDS: CARVEDILOL 6.25 MG TABLET (FP) PO SCH (09:23)
[2020-06-10] MEDS: amLODIPine BESYLATE 5 MG TABLET (FP) PO SCH (09:23)
[2020-06-10] MEDS: APIXABAN 5 MG TABLET PO SCH (09:23)
[2020-06-10] MEDS ORDERED: predniSONE 5 MG TABLET (UD) PO SCH (10:00)
[2020-06-10 15:05] VITALS: BP 117/75; PULSE 85; TEMP 99.1
== END 2020-06-10 20:48 | disposition home or self-care (01) | DRG 689 ==
LOC: FER 17:27 → FM/S 06-08 02:40
PROVIDERS: ADMIT Internal Medicine; ATTEND Nurse Practitioner Acute Care
DX: N39.0 Urinary tract infection, site not specified (principal); G93.41 Metabolic encephalopathy; M32.9 Systemic lupus erythematosus, unspecified; R07.9 Chest pain, unspecified; I10 Essential (primary) hypertension; E78.5 Hyperlipidemia, unspecified; M06.9 Rheumatoid arthritis, unspecified; F32.9 Major depressive disorder, single episode, unspecified
CPT/HCPCS: 36415; 70450-TC; 71045-TC-FY; 80053; 81003; 81015; 82550; 82553; 82962; 83690; 83735; 84484; 85025; 85610; 85730; 87040; 87086; 87804; 93005; 93010; 93306-TC; 97116-GP; 97162-GP; 99285-25; C9803; U0003